=== PATIENT | female | born 1970 | race Caucasian/White ===

== ENCOUNTER 2019-03-13 00:06 | Outpatient (CLI) | payer BC, SELFPAY ==
--- NOTE | 2019-03-13 15:50 | DI.MAMMO_ITS ---
EXAM: MG MAMMO SCREENING CLINICAL HISTORY: SCREENING Z12.39. TECHNIQUE: Full field digital CC and MLO mammographic images were obtained with 3D tomosynthesis and utilizing computer aided detection (CAD). COMPARISON: 2012. FINDINGS: Breast density: Category C - Heterogeneously dense Masses/Architectural Distortion: None seen. Microcalcifications: No suspicious pleomorphic-type calcifications are seen. Skin Thickening/Nipple Retraction: None. Axilla: Unremarkable. IMPRESSION: 1. BI-RADS Cat 2 - Benign Findings. No significant interval change with no specific features of vic gnancy noted. 2. Unless there is more urgent need, screening mammography is recommended, as per [place] guidelines. Breast Density - Category C - Heterogeneously dense. The mammogram demonstrates the patient's breast tissue is dense. Dense breast tissue is very common and is not abnormal but dense breast tissue can make it harder to find cancer on a mammogram. Also, dense breast tissue may increase their breast can cer risk. This information about the result of the mammogram report was provided to the patient to ra ise their awareness. Use this report when you speak with the patient about their risks for breast can cer, which includes their family history. At that time, you may recommend for more screening tests (U ltrasound or MRI) as they might be useful based on their risk. A negative radiographic report should not delay biopsy if a dominant or clinically suspicious mass is present. Up to ten percent of cancers are not identified on mammography. A negative report may reinforce clinical impression. Adenosis and dense breasts may obscure an underlying neoplasm. False positive reports average 6 to 10%. A negative radiographic report should not delay biopsy if a dominant or clinically suspicious mass is present. Up to ten percent of cancers are not identified on mammography. A negative report may reinforce clinical impression. Adenosis and dense breasts may obscure an underlying neoplasm. False positive reports average 6 to 10%. Patient will receive a letter notifying them of these results.
== END 2019-03-13 00:26 ==
PROVIDERS: PCP Nurse Practitioner Family; Visit Provider Nurse Practitioner Family
DX: Z12.31 Encounter for screening mammogram for malignant neoplasm of breast (principal)
CPT/HCPCS: 77063; 77067

== ENCOUNTER 2019-05-12 08:15 | Day surgery (SDC) | payer BC, SELFPAY ==
[2019-05-12 08:28] VITALS: BP 101/60; PULSE 58; RESP 12; TEMP 36.5; O2SAT 100
[2019-05-12] MEDS: Lactated Ringers 1,000 ML 80 ML IV (09:40)
--- NOTE | 2019-05-12 10:13 | W.PM.DSUDISC ---
Discharge Plan Disposition Patient Disposition: HOME Condition: Good Discharge Details Reason For Visit: Colonoscopy Attending Provider: Estefania Marmolejo Primary Care Provider: Jennifer Elliott Home Meds and New Rx's Prescriptions: Discontinued polyethylene glycol 3350 17 gram/dose powder 238 g PO ONCE Qty: 238 RF: 0 bisacodyl [Dulcolax (bisacodyl)] 5 mg tablet,delayed release (DR/EC) 5 mg PO ONCE Qty: 4 RF: 0 Discharge Instructions Additional Instructions: Findings: A possible small polyp was removed. My office will contact you with biopsy results. Follow up: If an adenomatous polyp is confirmed, plan for a colonoscopy in 5 years. Please call if you develop: fevers >101.5 Nausea or Vomiting Abdominal pain that is not transient DAY SURGERY UNIT POST COLONOSCOPY INSTRUCTIONS 1. Because there will be medication in your system for the next 24 hours, you may feel a little sleepy. Your coordination will be affected. Therefore: a. Do not drive or operate dangerous equipment for 24 hours. b. Do not drink alcohol beverages for 24 hours (not even beer). c. Plan to go home and rest for the day. 2. Generally there are no restrictions on your activity after a day or so has gone by, but you may feel a bit fatigued for a few days. 3 After you arrive home you may have a light meal and return to a normal diet as you can tolerate it without feeling sick to your stomach. 4. After surgery, you may feel pain or discomfort. This should be only transient, but if it persists please contact your doctor. 5. If there are any questions regarding the findings of your procedure, please feel free to contact your doctor. 6. If you are unable to contact your doctor with a problem, contact the hospital at [phone]. 7. Continue all your regular medications unless directed otherwise. I understand the above instructions and have no questions. Signature of Patient or Responsible Adult Escort Date/Time Name of Responsible Adult Escort Signature of Nurse Date/Time Activity:: Activity as Tolerated Diet:: As Tolerated Discharge Orders Discharge Orders: Discharge Order (Routine); Ordered 05/12/19 Ordered By: Estefania Marmolejo DS: Diagnosis Discharge Diagnosis (1) Colon polyp: Status: Acute
--- NOTE | 2019-05-12 10:48 | BOWEL_PTH ---
PATIENT: Brianda Huitron LOC: [facility] U#:[id number] AGE/SX: 48/F ROOM: RE05/12/[address]: Estefania Marmolejo MD : 1970 BED: DIS: 05/12/2019 SPEC #: [id number] RECD: 05/12/19 16:18 STATUS: JOSE LUIS REQ #: [id number] EVARISTO: 05/12/19 10:[address]: Estefania Marmolejo DEPT: Surgical Specimen RECD BY: Negin Franco ENTERED: 05/12/19 16:19 SP TYPE: Bowel OTHR DR: Jennifer Elliott Tissues: 1 - BIOPSY BOWEL Procedures: GROSS AND MICRO LEVEL 4 Comments: [id number]
[2019-05-12 11:41] VITALS: BP 92/57; PULSE 50; RESP 16; TEMP 36.6; O2SAT 100
--- NOTE | 2019-05-12 15:21 | COLE_ITS ---
DATE OF PROCEDURE: May 12, 2019 PREOPERATIVE DIAGNOSIS: Screening. POSTOPERATIVE DIAGNOSIS: Possible ascending colon polyp. PROCEDURE: Colonoscopy with biopsy. SURGEON: Estefania Marmolejo M.D. ANESTHESIA: General. INDICATIONS: This is a 48-year-old woman who presents for her first screening colonoscopy. She is a symptomatic and has no family history of colon cancer. PROCEDURE: She was placed in the left Ball position. Propofol was titrated to sedation. Digital re ctal examination revealed no abnormalities. The scope was advanced to the cecum without difficulty. The ileocecal valve and appendiceal orifice were clearly identified. Her prep was good. The scope was slowly withdrawn with a thick fold versus a small, sessile polyp identified in the distal ascendi ng colon. This area was removed with the cold forceps and sent to pathology. No other abnormalities were noted throughout the transverse, descending, sigmoid colon or rectum, including on retroflex vi ew. She tolerated the procedure well and was stable to recovery. If the biopsy does confirm an adenomatous polyp, she will need a follow-up colonoscopy in five years. cc: Jennifer Elliott N.P.
== END 2019-05-12 12:08 | disposition home or self-care (01) ==
PROVIDERS: PCP Nurse Practitioner Family; Visit Provider Surgery
PROC: 0DJD8ZZ Inspection of Lower Intestinal Tract, Via Natural or Artificial Opening Endoscopic (ICD-10-PCS; CPT 45378; principal; 2019-05-12 09:45)
DX: Z12.11 Encounter for screening for malignant neoplasm of colon (principal); D12.3 Benign neoplasm of transverse colon
CPT/HCPCS: 45380; 88305

== ENCOUNTER → 2022-01-23 01:00 | Outpatient (CLI) | payer BC, SELFPAY ==
--- OUTSIDE RECORDS SUMMARY | 2022-01-23 01:01 | XMS_ITS | Encounter Summary ---
:[address] [facility] Address [address] [place] [address] Care Team Providers Name Role Phone Unknown, Provider MD Primary Care Provider Encounter Details Date Type Department Care Team Description 05/12/2019 Lab Requisition [facility] Estefania Marmolejo, Encounter for Pathology & MD screening for Laboratory Medicine [address] malignant neoplasm - [place], [place] of colon [address] [address] [place] [address] Social History Tobacco Use Types Packs/Day Years Used Date Never Assessed Sex Assigned at Date Recorded Not on file documented as of this encounter Plan of Treatment Not on filedocumented as of this encounter Procedures Procedure Name Priority Date/Time Associated Diagnosis Comme nts SURGICAL PATHOLOGY Today 05/12/2019 10:48 Encounter for Resu lts for this EST screening for procedure are in malignant neoplasm the resul ts of colon section. documented in this encounter Results SURGICAL PATHOLOGY (05/12/2019 10:48 EST) Final Diagnosis A. COLON, SPLENIC FLEXURE POLYP, POLYPECTOMY: [facility] Electronically - Low grade serrated adenoma. CENTER signed by JEAN Hunter DO on SERVICES 05/16/2019 at 09 23 Diagnosis Comment Architectural Superintendent slides of thi s case were reviewed at the intradepartmental consultation conference. [facility] SERVICES Clinical History Colon cancer screening [facility] Attestation By the signature below, [facility] Elec tronically the attending physician CENTER sign ed by Elsa, certifies that they LABORATORY Kandy Rosa DO on have 1) personally SERVICES 05/16/2019 at 0923 conducted a gross and/or microscopic examination of the described specimen(s), and/or personally interpreted the results of laboratory testing of the described specimen(s), and 2) personally rendered or confirmed the above diagnosis. Gross Description A. Received in formalin labe lled with proper patient identification (initials G, M) and possible polyp splenic flexure is a single back mucosal fragment (0.5 x 0.3 x 0.2 cm). Submitted intact in A1. [facility] Carlyn Mane 05/13/2019 06:47 LABORATORY SERVICES Scanned Images [facility] Specimen Tissue - Polyp of splenic flexure of col on (disorder) Performing Organization Address City/State/ZIP Code Phon e Number [facility] [address] [place] [address] SERVICES documented in this encounter Visit Diagnoses Diagnosis Encounter for screening for malignant ne oplasm of colon Special screening for malignant neoplasm s, colon documented in this encounter Care Teams Business Analytics Analyst Relationship Specialty Start Date End Date Unknown, Provider, PCP - General 02/15/15 documented as of this encounter
--- OUTSIDE RECORDS SUMMARY | 2022-01-23 01:01 | XMS_ITS | Encounter Summary ---
:1970 Author Organization [facility] Address [address] [place] [address] Care Team Providers Name Role Phone Unavailable Primary Care Provider Unavailable Encounter Details Date Type Department Care Team Description 08/02/2008 Orders Only [facility] Ebenezer Srivastava NP Laboratory Services - [address] [facility],[address] [address] [place] [address] [phone] Social History Tobacco Use Types Packs/Day Years Used Date Never Assessed Sex Assigned at Date Recorded Not on file documented as of this encounter Plan of Treatment Not on filedocumented as of this encounter Procedures Procedure Name Priority Date/Time Associated Comments Diagnosis HPV DETECTION, HIGH Routine 08/02/2008 8:15 Resul ts for this RISK TYPES EDT procedure are i n the results section. CYTOPATHOLOGY Routine 08/02/2008 0:00 Results for this EDT procedure are i n the results section. documented in this encounter Results HUMAN PAPILLOMA VIRUS DNA TEST (08/02/2008 8:15 EDT) Specimen Description Cervix, ThinPrep [facility] vial Result Negative for HPV [facility] types 16, 18, 31, 33, 35, 39, 45, 51, 52, 56, 58, 59, and 68. Report Status Final [facility] 08/09/2008 Specimen Performing Organization Address City/State/ZIP Code Phon e Number [facility] [address] [place] [address] SERVICES [facility] [address] [place] [address] CYTOPATHOLOGY (08/02/2008 0:00 EDT) Pathology Report: CYTOPATHOLOGY REPORT ? [facility] Reports generated via electr onic interface contain original data; ? however they are lacking the format of the original report. ? Caution should be taken when reading/interpreting unformatted reports. ? Name: ? KAREN HUITRON M ? Accession #: ? [id number] ? : ? 1970 (Age: 37) ??F ?Collect Date: ? 08/02/2008 ? Location: ? [facility] ? Receive Date: ? 08/03/2008 ? Provider: ?REINA W BESCH EDGER SAW OPERATOR ? Copy to: ? Specimen/Source: ? Pap Test, Cervix/Endocervix, ThinPrep Imaging System ? with manual evaluation ? Last Menstrual Period: ? 4/09 ? Other: ? HPVDX - HPV testing requeste d regardless of diagnosis on current ThinPrep Pap ?? test. ? SPECIMEN ADEQUACY ? Satisfactory for Eval uation ? - transformation zone compon ent present ? GENERAL CATEGORIZATION ? Negative for Intraepi thelial Lesion or Malignancy ? Document reviewed and electr onically signed by: ? Lorenzo Stumler, CT( CP) ? Report Date: ??05/04/ 2009 13:32 ? End of Report ? Specimen Performing Organization Address City/State/ZIP Code Phon e Number [facility] [address] [place] [address] SERVICES [facility] [address] [place] [address] documented in this encounter Visit Diagnoses Not on filedocumented in this encounter
--- OUTSIDE RECORDS SUMMARY | 2022-01-23 01:01 | XMS_ITS | Encounter Summary ---
:1970 Author Organization [facility] Address [address] [place] [address] Care Team Providers Name Role Phone None Primary Care Provider Unavailable Reason for Visit Reason Comments Travel Consult Encounter Details Date Type Department Care Team Description 07/20/2016 Office Visit Infectious Disease Afua Dos Santos specified counseling; [place] [facility] [place] Healthcare maintenance; [facility] Susanne gonzalez for prophylactic vaccination and inoculation against viral hepatitis; Drive Need for udliwfhwsb-xoxvjlx-zuubjlzjq (T dap) vaccine [place] [address] [place] [address] [phone] (Wo rk) Social History Tobacco Use Types Packs/Day Years Used Date Never Smoker Sex Assigned at Date Recorded Not on file documented as of this encounter Progress Notes Afua Dos Santos RN - 07/20/2016 2:00 PM EDT Adult Travel Clinic Reason for Visit: Ms. Huitron is a 45 y.o. patient who comes to travel clinic today for pre-travel evaluation, vaccination and traveler's health education. She is accompanied by her and 2 children. Trip Details: Destination countries (list from first to last): [place], [place], [place], ? [place] Departure date: 09/06/2016 Length of trip: 3 weeks Purpose of travel: pleasure, visiting family Type of environment: some urban, mostly safari in [facility] Accommodations: tented camps, hotels Medical History: Medical problems: Patient Active Problem List Diagnosis Code ??? Healthcare maintenance Z00.00 Current Outpatient Prescriptions Medication Sig Dispense Refill ??? CIS Free Text Med - Multi Vit-Fluoride ??? acetaminophen (TYLENOL) 325 mg tablet No current facility-administered medications for this visit. Immunosuppression: none History of adverse vaccine reactions: no History of latex, egg or beesting allergy:no or : no Patient advised to carry all medications in carry on luggage. Travel Health and Safety Issues: A discussion of travel health hazards and safety issues was done, including the following topics: traffic-accidents (alcohol, seatbelts), crime, alcohol related issues, sun exposure/heat illness, Schistosomiasis and other fresh water exposures, rabies, HIV infections, HepatitisTB, DVT prevention, Health Insurance coverage/[employer]. Discussed food and water precautions and patient handout provided. The following strategies were recommended for the management of traveler's diarrhea according to severity: ?? For treatment of mild diarrhea: hydration and over the counter antidiarrheal recommended. ?? For treatment of diarrhea accompanied by fever or systemic illness: hydration and empiric treatment with antibiotic recommended. We discussed carrying dose of emperic therapy of TD with fever but opted against. Hydration and Seek medical care ?? For severe or bloody diarrhea, or diarrhea accompanied by vomiting: patient advised to seek medical treatment. Vector-borne Disease Prevention Discussed insect bite prevention to reduce risk of malaria, dengue and other insect borne illnesses.Handout given. Malaria Risk: Significant risk of malaria on this itinerary. Discussed malaria chemoprophylaxis and possible side effects. Prescription for Malarone was given to the patient. Altitude: This trip does not involve high altitude. Immunizations Immunization History Administered Date(s) Administered ??? Influenza PF, Split 02/26/2016 ??? Influenza Vaccine, Whole 02/02/2005 ??? Tdap Vaccine 01/25/2007 Is very certain that she got 2 MMR. WIll look at childhood records. Today Tdap Hep A #1 Oral typhoid Hep B not highly indicated for this trip YF - not required or recommended for this itinerary Rabies - discussed animal avoidance, wound care and need for post-exposure prophylaxis. Follow-up Recommendations: Sh will need a second Hep A in 6-12 months. She'll check records at home to insure that she has had 2 doses of MMR. WIll be back in touch if shehas only one documented dose. Patient advised to call travel clinic if they return from trip with any illness. Time spent in travel counselin hour with family Vaccine information sheets given. Afua Dos Santos RN - 07/20/2016 2:00 PM EDT email from Ms. Huitron that she got nfor that she had recived a dose of MMR in 1982. INfor put into med record (04/05/82) since I don't have the exact date. documented in this encounter Plan of Treatment Not on filedocumented as of this encounter Visit Diagnoses Diagnosis Other specified counseling Healthcare maintenance Routine general medical examination at a health care facility Need for prophylactic vaccination and in oculation against viral hepatitis Need for fazlfvwntd-xhthpaz-cdxmqnwgv (T dap) vaccine Need for prophylactic vaccination with c ombined mgfllntmsk-qazlzyq-yplzaiysj (DTP) vaccine documented in this encounter Care Teams Press Room Supervisor Relationship Specialty Start Date End Date None PCP - General 02/25/10 None documented as of this encounter
--- OUTSIDE RECORDS SUMMARY | 2022-01-23 01:01 | XMS_ITS | Encounter Summary ---
:1970 Author Organization [facility] Address [address] [place] [address] Care Team Providers Name Role Phone Unavailable Primary Care Provider Unavailable Encounter Details Date Type Department Care Team Description 10/22/2006 Results Only [facility] - Sarai Trotter, DREAD conversion [address] [facility] [address] [place] [phone] (Wo rk) Social History Tobacco Use Types Packs/Day Years Used Date Never Assessed Sex Assigned at Date Recorded Not on file documented as of this encounter Plan of Treatment Not on filedocumented as of this encounter Procedures Procedure Name Priority Date/Time Associated Diagnosis Comme nts CYTOPATHOLOGY Routine 10/22/2006 0:00 EDT Results for this procedure are i n the results section . documented in this encounter Results CYTOPATHOLOGY (10/22/2006 0:00 EDT) Pathology Report: CYTOPATHOLOGY REPORT [facility] Reports generated via electronic interface contain óscar ginal data; however they are lacking the format of the original re port. Caution should be taken when reading/interpreting unfo rmatted reports. Name: ? THIAGO HUITRON ? Accession #: ? [id number] : ? 1970 (Age: 36) ??F ?Collect Date: ? 10/04 Location: ? [facility] ? Receive Date : ? 10/26/2006 Provider: ?SARAI AMAYA RUBBER GOODS INSPECTOR Copy to: ? Specimen/Source: ? ThinPrep Pap Test, Cervix/Endocervix, processed on [employer] ThinPrep Imaging System, with manual evaluation Last Menstrual Period: ? 05/10 Other: ? HPVA - HPV testing requested if ASC-US on the current ThinPrep Pap test. ? SPECIMEN ADEQUACY ? Satisfactory for Evaluation - transformation zone component present GENERAL CATEGORIZATION ? Negative for Intraepithelial Lesion or Malignan cy ? Document reviewed and electronically signed by: ? NIKOLE Hills(ASCP) ? Report Date: ??10/29/2006 15:51 End of Report Specimen Performing Organization Address City/State/ZIP Code Phon e Number [facility] [address] [place] [address] SERVICES [facility] [address] [place] [address] documented in this encounter Visit Diagnoses Not on filedocumented in this encounter
--- OUTSIDE RECORDS SUMMARY | 2022-01-23 01:01 | XMS_ITS | Encounter Summary ---
:1970 Author Organization [facility] Address [address] [place] [address] Care Team Providers Name Role Phone Unavailable Primary Care Provider Unavailable Encounter Details Date Type Department Care Team Description 04/29/2012 Results Only [facility] Ynes Pringle NP Laboratory Services - [address] [facility] [facility] [address] [place] [address] [place] [address] [phone] Social History Tobacco Use Types Packs/Day Years Used Date Never Assessed Sex Assigned at Date Recorded Not on file documented as of this encounter Plan of Treatment Not on filedocumented as of this encounter Procedures Procedure Name Priority Date/Time Associated Diagnosis Comme nts PAP TEST- RESULT Routine 04/29/2012 0:00 EST Resu lts for this ONLY procedure are i n the results section. documented in this encounter Results PAP TEST- RESULT ONLY (04/29/2012 0:00 EST) Pathology Report: CYTOPATHOLOGY REPORT [facility] Reports generated via electronic interface contain óscar ginal data; however they are lacking the format of the original re port. Caution should be taken when reading/interpreting unfo rmatted reports. Name: ? KAREN HUITRON ? Accession #: ? [id number] ? : ? 1970 (Age: 41) ??F ?Collect Da te: ? 04/29/2012 ? Location: ? [facility] ? Receive Date: ? 013 ? Provider: MARY PRINGLE SHEET METAL JOURNEYMAN Copy to: ? Final Report SPECIMEN ADEQUACY ? Satisfactory for Evaluation - transformation zone component present GENERAL CATEGORIZATION ? Negative for Intraepithelial Lesion or Malignan cy INTERPRETATION ? Reactive cellular dorothy nges associated with inflammation present (includes repair). Last Menstrual Period: 04/11/2012 Specimen/Source: ??Pap Test, Cervix/Endocervix, ThinPr ep Imaging System with manual evaluation Document reviewed and electronically signed by: ? STONEY LAND MD PHD ? Report ??Date: 05/11/2012 11:01 HPV with Pap Test ? Date Ordered: ? 05/11/2012 ? Status: ?? Signed Out ?Date Complete: ? 05/13/2012 ? By: ??S ystem Interface ? Date Reported: ? 05/13/2012 ? Interpretation RESULT: Negative for HPV. No E6 or E7 mRNA is detected from HPV types 16,18,31,3 3,35, 39,45,51,52,56,58,59,66, and 68 by sour bleaching pleater media val amplification. Comments Document reviewed and electronically signed by: ? System Interface ? Report date: 05/13/2012 By the signature above, the attending physician certif ies that he/she has personally conducted a gross and/or microscopic examin ation of the described specimens and rendered or confirmed the above diagnosi s. End of Report Specimen Performing Organization Address City/State/ZIP Code Phon e Number [facility] [address] [place] [address] SERVICES [facility] [address] [place] [address] documented in this encounter Visit Diagnoses Not on filedocumented in this encounter
--- OUTSIDE RECORDS SUMMARY | 2022-01-23 01:01 | XMS_ITS | Clinical Summary ---
:1970 Author Organization [facility] [place] [address] Care Team Providers Name Role Phone None Primary Care Provider Unavailable Allergies No known active allergies Medications Medication Sig Dispensed Refills Start Date End Date Status CIS Free Text Med - 0 04/10/2005 Active Multi Vit-Fluoride acetaminophen (TYLENOL) 0 04/10/2005 Active 325 mg tablet atovaquone-proguanil Take 1 tablet by 18 tablet 0 07/20/2016 Active (MALARONE) 250-100 mg mouth daily. TabletIndications: Other Start day before specified counseling travel to risk area, daily while there & for 7 days after Active Problems Problem Noted Date Healthcare maintenance 07/20/2016 Immunizations Name Administration Dates Next Due Hepatitis A Vaccine, Adult 07/20/2016 Influenza PF, Split 02/26/2016 Influenza Vaccine, Whole 02/02/2005 MMR Vaccine, Live 04/05/1982 Tdap Vaccine 07/20/2016, 01/25/2007 Typhoid Live, Oral 07/20/2016 Social History Tobacco Use Types Packs/Day Years Used Date Never Smoker Sex Assigned at Date Recorded Not on file Plan of Treatment Health Maintenance Due Date Last Done Comments Covid-19 Vaccine (#1) 03[birth year]06/1971 HIV screen 1986 Hepatitis C Screening 1986 HPV test 1998 PAP Smear 1998 Breast Cancer Share Decision Needed 2008 Colonoscopy 2013 Breast Cancer screening 2018 Zoster vaccine (1 of 2) 2018 Influenza (Flu) vaccine (1 of 1 - 12/04/2021 02/26/2016, Influenza standard series) Tetanus vaccine 07/20/2026 07/20/2016, 01/25/2007 Tdap adult Completed 07/20/2016, 01/25/2007 Care Teams Cloth Coverer Relationship Specialty Start Date End Date None PCP - General 02/25/10 None
--- OUTSIDE RECORDS SUMMARY | 2022-01-23 01:01 | XMS_ITS | Clinical Summary ---
:1970 Author Organization [facility] Address [address] [place] [address] Care Team Providers Name Role Phone Unknown, Provider Primary Care Provider Social History Tobacco Use Types Packs/Day Years Used Date Never Assessed Sex Assigned at Date Recorded Not on file Plan of Treatment Not on file Insurance Payer Benefit Plan / Subscriber ID Effective Dates Phone Addre ss Type Group [facility] [id number] 2019-Present [address] [facility] [place] [place] [address] Care Teams Pipe Stress Engineer Relationship Specialty Start Date End Date Unknown, Provider, PCP - General 02/15/15
--- OUTSIDE RECORDS SUMMARY | 2022-01-23 01:01 | XMS_ITS | Encounter Summary ---
:1970 Author Organization [facility] Address [address] [place] [address] Care Team Providers Name Role Phone Unknown, Provider Primary Care Provider Encounter Details Date Type Department Care Team Description 10/15/2017 Results Only [facility]- Erin Damon, PULPER [phone] [address] [place] [address] (Wo rk) Social History Tobacco Use Types Packs/Day Years Used Date Never Assessed Sex Assigned at Date Recorded Not on file documented as of this encounter Plan of Treatment Not on filedocumented as of this encounter Procedures Procedure Name Priority Date/Time Associated Diagnosis Comme nts PAP TEST- RESULT Routine 10/15/2017 0:00 EDT Resu lts for this ONLY procedure are i n the results section. documented in this encounter Results PAP TEST- RESULT ONLY (10/15/2017 0:00 EDT) Pathology Report: CYTOPATHOLOGY REPORT [facility] Reports generated via electronic interface contain óscar ginal data; SERVICES however they are lacking the format of the original re port. Caution should be taken when reading/interpreting unfo rmatted reports. Name: ? KAREN HUITRON ? Accession #: ? [id number] ? : ? 1970 (Age: 47 ) ??F ?Collect Date: ? 10/15/2017 ? Location: ? [facility] ? Receive Date: ? 10/19/19 18 ? Provider: ERIN SIMEON PULPER Copy to: ? Final Report SPECIMEN ADEQUACY ? Satisfactory for Evaluation - transformation zone component present GENERAL CATEGORIZATION ? Negative for Intraepithelial Lesion or Malignan cy INTERPRETATION ? Reactive cellular dorothy nges associated with inflammation present (includes repair). Specimen/Source: ??Pap Test, Cervix, ThinPrep Imaging System with manual evaluation Document reviewed and electronically signed by: ? MATTHEW GRAMAJO MD ? Report ??Date: 10/28/2017 10:23 HPV with Pap Test ? Date Ordered: ? 10/27/2017 ? Status: ?? Signed Out ?Date Complete: ? 10/29/2017 ? By: ??Sy stem Interface ? Date Reported: ? 10/29/2017 ? Interpretation RESULT: Negative for HPV. No E6 or E7 mRNA is detected from HPV types 16,18,31,3 3,35, 39,45,51,52,56,58,59,66, and 68 by slitter scorer cut off operator media val amplification. Comments Document reviewed and electronically signed by: ? System Interface ? Report date: 10/29/2017 By the signature above, the attending physician certif ies that he/she has personally conducted a gross and/or microscopic examin ation of the described specimens and rendered or confirmed the above diagnosi s. End of Report Specimen Performing Organization Address City/State/ZIP Code Phon e Number [facility] [address] [place] [address] SERVICES documented in this encounter Visit Diagnoses Not on filedocumented in this encounter Care Teams Nickel Plater Relationship Specialty Start Date End Date Unknown, Provider, PCP - General 02/15/15 documented as of this encounter
--- NOTE | 2022-01-23 12:00 | DI.MAMMO_ITS ---
Exam(s) MAMMO SCREENING EXAM: MAMMO SCREENING CLINICAL HISTORY: SCREENING, Z12.39. TECHNIQUE: Bilateral full field digital CC and MLO mammographic images were obtained with 3D tomosyn thesis and utilizing computer aided detection (CAD). COMPARISON: Prior mammograms were reviewed, the most recent being March 2019. FINDINGS: There has been no significant change in the appearance and distribution of the fibroglandular tissue. There are no new spiculated masses nor malignant appearing microcalcification groups. Benign microcalcifications again noted right breast. There is no significant architectural distortion nor skin thickening-retraction. IMPRESSION: No radiographic evidence of malignancy. BI-RADS Category 2 - Benign Findings Breast Density - Category C - Heterogeneously dense Breast density Category C or D implies that the patient has dense breast tissue. Dense breast tissue can make it harder to find cancer on a mammogram. Dense breast tissue is also associated with an incr eased risk of breast cancer. This information about the result of the mammogram report was provided to the patient to raise their awareness. Use this report when you speak with the patient about their risks for breast cancer, which includes their family history. At that time, you may recommend additional screening tests (Ultrasoun d or MRI) as these tests may add significant information. A negative radiographic report should not delay biopsy if a dominant or clinically suspicious mass is present. Up to ten percent of cancers are not identified on mammography. A negative report may reinforce clinical impression. Adenosis and dense breasts may obscure an underlying neoplasm. False positive reports average 6 to 10%. Patient will receive a letter notifying them of these results.
== END ==
PROVIDERS: PCP Nurse Practitioner Family; Visit Provider Nurse Practitioner Family
DX: Z12.31 Encounter for screening mammogram for malignant neoplasm of breast (principal); R92.8 Other abnormal and inconclusive findings on diagnostic imaging of breast
CPT/HCPCS: 77063; 77067

== ENCOUNTER 2022-11-30 18:12 | Outpatient (REF) | payer BC, SELFPAY | END 2022-11-30 18:13 | disposition home or self-care (01) | LOC: LBN 18:12 | PROVIDERS: PCP Nurse Practitioner Family; Visit Provider Nurse Practitioner Family | DX: L02.01 Cutaneous abscess of face (principal) | CPT/HCPCS: 87077; 87070; 87186; 87205 ==

== ENCOUNTER 2023-05-21 15:08 | Outpatient (REF) | payer BC, SELFPAY ==
--- NOTE | 2023-05-21 14:00 | PAPFT_PTH ---
PATIENT: Brianda Huitron LOC: [facility]#:[id number] AGE/SX: 52/F ROOM: RE05/21/[address]: LALY ANTONIO : 1970 BED: DIS: 05/21/2023 SPEC #: [id number] RECD: 05/24/23 13:07 STATUS: JOSE LUIS REQ #: [id number] EVARISTO: 05/21/23 14:[address]: Laly Antonio DEPT: [facility] Cytology RECD BY: Negin Franco ENTERED: 05/24/23 13:07 SP TYPE: PAPFT OTHR DR: eJnnifer Elliott Tissues: 1 - CX/ENDOCX FOR PAP SMEARS Procedures: PAP THIN PREP/UVM Screening HPV DNA PROBE Comments: [id number]
[2023-05-21 19:50] LABS: Abs Immature Grans 0.01 10^3/uL (0.0-0.06); Absolute Basophil Count 0.06 10^3/uL (0.0-0.2); Absolute Eosinophil Count 0.24 10^3/uL (0.0-0.7); Absolute Lymphocyte Count 1.78 10^3/uL (1.2-3.4); Absolute Monocyte Count 0.46 10^3/uL (0.1-0.8); Absolute Neutrophil Count 4.11 10^3/uL (1.2-6.7); Basophils % 0.9; Eosinophils % 3.6; HGB 12.8 g/dL (11.2-15.7); Immature Grans % 0.2; Lymphocytes % 26.7; MCH 29.8 pg (27.0-33.0); MCHC 33.7 % (32.0-36.0); MCV 88 fL (80-95); MPV 10.5 fL (8.0-11.0); Monocytes % 6.9; Neutrophils % 61.7; Platelet Count 305 10^3/uL (130-400); RDW 12.5 % (11.7-14.6); RDW-SD 40.3 fL; WBC 6.66 10^3/uL (4.4-10.8)
[2023-05-21 20:01] LABS: ALT 26 U/L (14-59); AST 16 U/L (15-37); Albumin 4.1 g/dL (3.4-5.0); Alkaline Phosphatase 66 U/L (46-116); Anion Gap 9.2 mmol/L (3-11); BUN 17 mg/dL (7-18); Bilirubin, Total 0.3 mg/dL (0.2-1.0); CO2 27.8 mmol/L (21.0-32.0); CREATININE 0.8 mg/dL (0.55-1.02); Calcium 9.4 mg/dL (8.5-10.1); Calculated LDL 89 mg/dL (<100); Chloride 105 mmol/L (98-107); Cholesterol 209 mg/dL (<200); Glucose 105 mg/dL (74-106); HDL Cholesterol 92 mg/dL (40-60); Potassium 3.9 mmol/L (3.5-5.1); Sodium 142 mmol/L (136-145); Total Protein 7.1 g/dL (6.4-8.2); Triglyceride 144 mg/dL (<150)
== END 2023-05-21 15:09 | disposition home or self-care (01) ==
LOC: NCHCN 15:08
PROVIDERS: PCP Nurse Practitioner Family; Referring Provider Nurse Practitioner Family; Visit Provider Nurse Practitioner Family
DX: Z13.6 Encounter for screening for cardiovascular disorders (principal); Z13.0 Encounter for screening for diseases of the blood and blood-forming organs and certain disorders involving the immune mechanism
CPT/HCPCS: 80053; 80061; 88142; 85025; 87624

== ENCOUNTER 2024-01-07 00:23 | Outpatient (CLI) | payer BC, SELFPAY ==
--- NOTE | 2024-01-07 | DI.MAMMO_ITS ---
Exam(s) MAMMO SCREENING EXAM: MAMMO SCREENING CLINICAL HISTORY: SCREENING, Z12.31 TECHNIQUE: Mammograms were interpreted according to the usual protocol including computer analysis w [employer] CAD system, tomosynthesis and C-view imaging. COMPARISON: 2018 and 2021 FINDINGS: The breasts are composed of heterogeneously dense fibroglandular densities, Breast Density category C . No suspicious masses or suspicious microcalcifications are seen. No skin thickening or abnormal axillary lymph nodes are seen. There has been no significant change from prior exams. IMPRESSION: BI-RADS Category 1, Negative mammogram. Yearly screening mammography is recommended. Breast Density Category C, heterogeneously Dense. The mammogram demonstrates the patient's breast tissue is dense. Dense breast tissue is very common a nd is not abnormal but dense breast tissue can make it harder to find cancer on a mammogram. Also, de nse breast tissue may increase breast cancer risk. This information about the result of the mammogram report was provided to the patient to raise their awareness. Use this report when you speak with the patient about their risks for breast cancer, which includes their family history. At that time, you may recommend additional screening tests (Ultrasound or MRI) as they might be useful based on their r isk. A negative radiographic report should not delay biopsy if a dominant or clinically suspicious mass is present. Up to ten percent of cancers are not identified on mammography. A negative report may reinforce clinical impression. Adenosis and dense breasts may obscure an underlying neoplasm. False positive reports average 6 to 10%.
== END 2024-01-07 00:43 ==
PROVIDERS: Visit Provider Nurse Practitioner Family
DX: Z12.31 Encounter for screening mammogram for malignant neoplasm of breast (principal)
CPT/HCPCS: 77063; 77067

== ENCOUNTER 2024-11-21 20:59 | Inpatient (IN) | payer BC, SELFPAY ==
[2024-11-21 21:00] VITALS: BP 117/77; PULSE 72; RESP 20; TEMP 36.1; O2SAT 98
[2024-11-21 21:10] VITALS: BP 117/77; PULSE 72; RESP 20; TEMP 36.1; O2SAT 98
--- NOTE | 2024-11-21 21:30 | DI.RAD_ITS ---
Exam(s) XR KNEE LT 3V AP,LAT,SUSAN EXAM: XR KNEE LT 3V AP,LAT,SUSAN CLINICAL HISTORY: Old injury, pain, swelling,. TECHNIQUE: 2D digital imaging was performed. Three views. COMPARISON: No exams were available for comparison FINDINGS: BONES: No acute fracture is present. No bony destructive lesion is seen. JOINTS: The knee is normally aligned. No joint effusion is seen. The joint spaces are maintained. SOFT TISSUE: Marked soft tissue swelling anteriorly which could represent prepatellar bursitis post versus posttraumatic. IMPRESSION: Marked anterior soft tissue swelling.. The preliminary [facility] report was reviewed. DATA REPOSITORY: RADIATION DOSE DELIVERED:
--- NOTE | 2024-11-21 21:40 | ED.GENADUL_ITS ---
Discharge Plan Disposition Patient Disposition: Admit to [facility] Condition: Stable Discharge Details Clinical Impression: Cellulitis, Septic prepatellar bursitis of left knee Primary Care Provider: Unknown,Unknown ED Provider: Park Owen Home Meds and New Rx's Prescriptions: No Action No Known Home Meds [facility] General Mode of arrival: ambulatory . Date/Time Provider Initiated Documentation: 11/21/24 21:00 . Limitations to Documentation: no limitations . Information obtained by: patient, RN notes reviewed and old records reviewed . HPI Narrative: 54-year-old female presents to the ER with a chief complaint of fever chills body myalgias and left knee pain with erythema which she noticed today after hiking. Patient reports that she fell on October 03 while running landing on to her left knee. She did have significant bruising at that time and was never seen. She reports that it was feeling better and however started bothering her while running today. She began with myalgias body aches and fever of 101.4 at home prior to arrival. She did take ibuprofen around 7 PM. She is able to extend her left leg fully but has decreased range of motion to approximately 35 degrees with flexion. There is marked erythema noted anteriorly and swelling. She reports that she did take a home COVID test which was negative. Denies any other associated symptoms. No significant past medical history allergies or major surgeries. Related Data Home Medications ?Medication ?Instructions ?Recorded ?Confirmed Unknown [No Known Home Meds] 11/21/24 0 11/21/24 Allergies Allergy/AdvReac Type Severity Reaction Status Date / Time No Known Allergies Allergy Verified 11/21/24 21:05 General Stated Complaint: Cellulitis TEQUILA: 3 Review of Systems All systems reviewed & are unremarkable except as noted in HPI and below Constitutional Constitutional: Reports as per HPI, Reports body ache(s) and Reports fever(s) Musculoskeletal Musculoskeletal: Reports as per HPI, Reports myalgias, Reports arthralgias, Reports joint swelling (Left knee) and Reports limited range of motion Integumentary/Breasts Skin/Breast: Reports erythema (Marked redness over her left anterior knee measuring 15 cm x 15 cm) Exam Narrative Exam Narrative: Constitutional: Alert and oriented x3. Appears stated age. Normal body habitus. Head: Normocephalic, no trauma. Eyes: Pupils PERRL, Red reflex noted, EOM's intact. Eyelids symmetrical without lesions, discharge, or swelling. ENT: Bilateral TM's WNL, External ear normal to inspection, no mastoid TTP, swelling, or erythema, Nasal turbinates WNL, no nasal discharge. Normal dentition, Posterior pharynx WNL, no exudate. Chest: RRR, Normal S1, S2, distal pulses intact. Resp: Lungs clear to auscultation bilaterally, no wheezes, rales, or rhonchi. Abdomen: Soft, non-distended, Normoactive bowel sounds all 4 quads. Musculoskeletal: See skin and extremity assessment below. Pain with flexion to approximately 35 degrees is able to extend without difficulty. Neurologic: Cranial nerves II-XII intact. Alert and oriented x 3. Motor: No deficits noted. Sensory: Intact bilaterally all 4 extremities. Hematologic/Lymphatic: No ecchymosis, no lymphadenopathy. Skin General skin exam: elasticity normal and turgor normal Full body images: 2 1. Marked erythema, swelling, warmth tenderness Extrem Left lower extremity: knee Details: tenderness, swelling, abnormal ROM Details: pain with active ROM Details: with flexion and warmth Location: anteriorly Knee images: 2 1. Marked erythema approximately 15 cm x 15 cm, Marked with surgical marker Course Vital Signs Vital signs: Vital Signs Temperature 36.1 C L 11/21/24 21:00 Pulse 72 11/21/24 21:00 Respiratory Rate 20 11/21/24 21:00 Blood Pressure 117/77 11/21/24 21:00 Pulse Oximetry 98 11/21/24 21:00 Temperature 36.1 C L 11/21/24 21:10 Pulse 72 11/21/24 21:10 Respiratory Rate 20 11/21/24 21:10 Blood Pressure 117/77 11/21/24 21:10 Blood Pressure Position Sitting 11/21/24 21:10 Pulse Oximetry 98 11/21/24 21:10 Oxygen Delivery Method Room Air 11/21/24 21:10 Pain Level 1 11/21/24 21:10 Comment 101.4 at 1800 took Advil aprrox 1900 11/21/24 21:10 Medical Decision Making 54-year-old female presents to the ER with a chief complaint of fever chills body myalgias and left knee pain with erythema which she noticed today after hiking. Patient reports that she fell on October 03 while running landing on to her left knee. She did have significant bruising at that time and was never seen. She reports that it was feeling better and however started bothering her while running today. She began with myalgias body aches and fever of 101.4 at home prior to arrival. She did take ibuprofen around 7 PM. She is able to extend her left leg fully but has decreased range of motion to approximately 35 degrees with flexion. There is marked erythema noted anteriorly and swelling. She reports that she did take a home COVID test which was negative. Denies any other associated symptoms. No significant past medical history allergies or major surgeries. Workup ordered including CBC CMP tick and Lyme panel knee x-ray, CRP, ESR and will consent for left knee joint aspiration pending XRay. 2254: Discussed plan of care and recommendation for admission with patient who verbalized understanding. I also did verbally consent her for a left knee joint aspiration which she is agreeable to at this time. Preliminary x-ray as noted below which shows no osseous abnormalities. 2. Severe prepatellar soft tissue swelling consider cellulitis versus prepatellar bursitis. No soft tissue air or foreign body. Hospitalist paged. 2305: Patient prepped and verbally consented for the aspiration however before I was able to inject her knee with lidocaine or aspirate fluid patient was texting her sister who is an orthopedic surgeon [facility] and would like to hold off on the joint aspiration at this time. Procedure stopped at patient request. 2311: Spoke with Dr. St who is on-call for hospitalist regarding patient case in details he agrees to accept patient for admission for observation of possible cellulitis versus septic joint versus septic bursitis. Vancomycin IV piggyback ordered 1 g, and ceftriaxone 1 g IV ordered to cover for possible Septic joint. Patient aware of POC and is in agreement with the plan. This text was generated using [employer] dictation system, please disregard any oddities of phrase or misspellings. Imaging Data Radiologic Study: Imaging: X-Ray Radiologist's impression: TECHNIQUE: Imaging protocol: Radiologic exam of the left knee. Views: 3 views. COMPARISON: No relevant prior studies available. FINDINGS: Bones/joints: No fracture or malalignment. No gross joint effusion. No evidence of osteomyelitis or septic joint. Soft tissues: Severe anterior soft tissue swelling, edema versus cellulitis or possibly prepatellar bursitis. No soft tissue air or foreign body. Vasculature: Varicose veins in the distal thigh and calf in the greater saphenous distribution. IMPRESSION: 1. No osseous abnormalities. 2. Severe prepatellar soft tissue swelling. Consider cellulitis versus edema or possibly prepatellar bursitis. No soft tissue air or foreign body. 3. Varicose veins. Thank you for allowing us to participate in the care of your patient. Dictated and Authenticated by: Med Hampton MD Lab Data Lab results reviewed: Yes I reviewed the patient's lab results. Labs: 11/21/24 22:03 Synovial - Left Knee Body Fluid Culture - Pending 11/21/24 22:03 Synovial - Left Knee Gram Stain - Pending 11/21/24 21:52 Blood Blood Culture - Pending 11/21/24 21:43 Blood Blood Culture - Pending Laboratory Tests Range/Units 11/21/24 11/21/24 21:45 21:45 WBC (4.4-10.8) 10^3/uL 13.60 H RBC (3.93-5.22) 10^6/uL 4.10 Hgb (11.2-15.7) g/dL 12.0 Hct (36.0-46.0) % 35.8 L MCV (80-95) fL 87 MCH (27.0-33.0) pg 29.3 MCHC (32.0-36.0) % 33.5 RDW (11.7-14.6) % 12.7 Plt Count (130-400) 10^3/uL 246 MPV (8.0-11.0) fL 9.6 Immature Gran % % 0.3 Neutrophils % % 76.6 Lymphocytes % % 11.5 Monocytes % % 10.8 Eosinophils % % 0.4 Basophils % % 0.4 Nucleated RBC % (0.0-0.3) % 0.0 Absolute Neutrophils (1.2-6.7) 10^3/uL 10.42 H Absolute Lymphocytes (1.2-3.4) 10^3/uL 1.56 Absolute Monocytes (0.1-0.8) 10^3/uL 1.47 H Absolute Eosinophils (0.0-0.7) 10^3/uL 0.05 Absolute Basophils (0.0-0.2) 10^3/uL 0.05 ESR (0-30) mm/hr 19 Sodium (136-145) mmol/L 138 Potassium (3.5-5.1) mmol/L 3.7 Chloride (98-107) mmol/L 102 Carbon Dioxide (21.0-32.0) mmol/L 26.4 Anion Gap (3-11) mmol/L 9.6 BUN (7-18) mg/dL 11 Creatinine (0.55-1.02) mg/dL 0.9 Est GFR (CKD-EPI 2020) (mL/min/1.73m2) 75.03 Glucose (74-106) mg/dL 112 H Calcium (8.5-10.1) mg/dL 9.0 Magnesium (1.8-2.4) mg/dL 2.3 Total Bilirubin (0.2-1.0) mg/dL 0.7 AST (15-37) U/L 17 ALT (14-59) U/L 24 Alkaline Phosphatase (46-116) U/L 54 C-Reactive Protein (<or=0.5) mg/dL 7.32 H Total Protein (6.4-8.2) g/dL 7.1 Albumin (3.4-5.0) g/dL 3.8 Procalcitonin ng/mL 0.32 Add-On Test Request DONE DONE [facility]LY [facility] All Active Problems (Updated 11/21/24 @ 22:56 by Park Owen NP) Septic prepatellar bursitis of left knee (Acute) Cellulitis (Acute) Colon polyp (Acute) Surgical History H/O colonoscopy (~05/2019) 05/2019 - low grade serrated adenoma. Repeat in 5 years. Social History Smoking/Tobacco Use Status: Never Smoking risk assessment performed?: Yes Alcohol Intake: current Alcohol Intake frequency: a few times a week Alcohol type: wine Drug use: Never Substance use type: does not use Housing: house Do you feel safe at home: Yes Do you feel safe in your relationship?: Yes
[2024-11-21 21:56] LABS: Abs Immature Grans 0.04 10^3/uL (0.0-0.06); HCT 35.8 % (36.0-46.0); HGB 12.0 g/dL (11.2-15.7); Immature Grans % 0.3 %; MCH 29.3 pg (27.0-33.0); MCHC 33.5 % (32.0-36.0); MCV 87 fL (80-95); MPV 9.6 fL (8.0-11.0); Platelet Count 246 10^3/uL (130-400); RBC 4.10 10^6/uL (3.93-5.22); RDW 12.7 % (11.7-14.6); RDW-SD 40.8 fL; WBC 13.60 10^3/uL (4.4-10.8)
[2024-11-21 22:15] LABS: Lab Add On Test DONE
[2024-11-21 22:16] LABS: ALT 24 U/L (14-59); AST 17 U/L (15-37); Albumin 3.8 g/dL (3.4-5.0); Alkaline Phosphatase 54 U/L (46-116); Anion Gap 9.6 mmol/L (3-11); BUN 11 mg/dL (7-18); Bilirubin, Total 0.7 mg/dL (0.2-1.0); CO2 26.4 mmol/L (21.0-32.0); Calcium 9.0 mg/dL (8.5-10.1); Chloride 102 mmol/L (98-107); Estimated GFR 75.03 (mL/min/1.73m2); Glucose 112 mg/dL (74-106); Magnesium 2.3 mg/dL (1.8-2.4); Potassium 3.7 mmol/L (3.5-5.1); Sodium 138 mmol/L (136-145); Total Protein 7.1 g/dL (6.4-8.2)
[2024-11-21 22:18] LABS: ESR 19 mm/hr (0-30)
[2024-11-21 22:20] LABS: Lab Add On Test DONE
[2024-11-21 22:29] LABS: C-Reactive Protein 7.32 mg/dL (<or=0.5)
--- NOTE | 2024-11-21 22:33 | DI.[facility]_ITS ---
PROCEDURE INFORMATION: Exam: XR Left Knee Exam date and time: 11/21/2024 10:07 PM Age: 54 years old Clinical indication: Pain; Knee; Left; Additional info: Old injury, pain, swelling, TECHNIQUE: Imaging protocol: Radiologic exam of the left knee. Views: 3 views. COMPARISON: No relevant prior studies available. FINDINGS: Bones/joints: No fracture or malalignment. No gross joint effusion. No evidence of osteomyelitis or septic joint. Soft tissues: Severe anterior soft tissue swelling, edema versus cellulitis or possibly prepatellar bursitis. No soft tissue air or foreign body. Vasculature: Varicose veins in the distal thigh and calf in the greater saphenous distribution. IMPRESSION: 1. No osseous abnormalities. 2. Severe prepatellar soft tissue swelling. Consider cellulitis versus edema or possibly prepatellar bursitis. No soft tissue air or foreign body. 3. Varicose veins. Dictated and Authenticated by: Med Hampton MD. Orderin Lexie Nick MD
[2024-11-21 22:56] LABS: Procalcitonin 0.32 ng/mL
[2024-11-21] MEDS: Lidocaine 1% Pres-Free W/EPI 1/200,000 30 ML VIAL IJ (23:00)
[2024-11-21] MEDS: cefTRIAXone 1 GM/50 ML BAG IVPB (23:25)
--- NOTE | 2024-11-21 23:37 | W.PM.HP.N ---
Date of service: 11/21/24 Time of Service: 23:58 Assessment and Plan Assessment and plan (1) Septic prepatellar bursitis of left knee: Start date: 11/21/24 Status: Acute Assessment and plan: This is a 54-year-old lady who had a fall in early October with injury to her left knee which appear to be a hematoma by the picture she took of her knee at that time. This slowly resolved but she recently began to attempt to exercise again and went on a long hike prior to this presentation. After this hike, patient had significant increase in swelling after patella area and appeared to have cellulitis. She also had fever and chills and this may be septic. She was treated with IV Rocephin and vancomycin with orthopedic consultation for possible drainage of her patella bursa which may be an infected hematoma. She is a full code. (2) Cellulitis: Start date: 11/21/24 Status: Acute Assessment and plan: This is a complication of a hematoma with patient attempting to reach engage in activities that are quite strenuous. It appears focal over her patella area and not to involve the joint at this time. Vancomycin and Rocephin with orthopedic consultation to evaluate prepatellar bursa which may be septic. Her CRP was elevated but procalcitonin was negative and she did have fever which resolved. Blood cultures were performed. There was no fluid obtained from the patella bursa for culture or Gram stain and this may be performed by the orthopedist. History of Present Illness History of Present Illness Chief Complaint: Acute swelling left knee after injury and partial recovery, fever Narrative: This is a 54-year-old female patient who is very healthy on no medical therapy who frequently runs and hikes locally. She injured herself October 03, 2024 while running and she fell hitting her left knee very hard to the ground causing a slight scrape but mostly a large bruised and swollen knee. She had problems walking for a while but this slowly improved to where she began to exercise once again. Over the last week or so the patient states that her knee felt close to normal but not completely to baseline. She hiked 18 miles in the [facility] the day prior to presentation and presented to the ED because of swelling and pain in her left knee along with redness. She also had fever with chills. She complained of muscle aches and bodyaches with her fever. She denied any cough or respiratory symptoms. She had no symptoms. She reports the ED because of her fever and swollen knee and was concerned about infection. Her sister is an orthopedist advised that she be seen by an orthopedist locally. The patient was not seen for her initial injury. Imaging in ED did not show any acute fractures and no significant joint effusion but significant soft tissue and prepatellar edema consistent with patellar bursitis which appears septic with fever. She also had a slightly elevated white count. CRP was also elevated. Procalcitonin was negative and she did not appear septic. Patient will be admitted for IV antibiotic therapy and orthopedic consultation in the morning. She is a full code. Review of Systems Narrative: 13 point review of systems otherwise unrevealing or stable. PFSH All Active Problems (Updated 11/22/24 @ 06:51 by Emory Nettles) Septic prepatellar bursitis of left knee (Acute) Cellulitis (Acute) Colon polyp (Acute) Surgical History H/O colonoscopy (~05/2019) 05/2019 - low grade serrated adenoma. Repeat in 5 years. Social History Smoking/Tobacco Use Status: Never Smoking risk assessment performed?: Yes Alcohol Intake: current Alcohol Intake frequency: a few times a week Alcohol type: wine Drug use: Never Substance use type: does not use Housing: house Do you feel safe at home: Yes Do you feel safe in your relationship?: Yes Meds Allergies and Home Medications Allergies Allergy/AdvReac Type Severity Reaction Status Date / Time No Known Allergies Allergy Verified 11/21/24 21:05 Home Medications ?Medication ?Instructions ?Recorded ?Confirmed ?Type Unknown [No Known Home Meds] 11/21/24 11/21/24 History Exam Narrative Exam Narrative: General: Patient appears appropriate for age, moderately obese, alert and oriented x 3 and in no acute distress. She is well tanned. HEENT: Normocephalic, eyes with pupils equal and reactive light symmetrically, extraocular movement intact and sclera anicteric. Oropharynx with moist mucosa and good dentition. Neck: Supple without JVD. Back: Normal posture without CVA tenderness. Lungs: Clear to auscultation and percussion with no focalizing rales or rhonchi. No expiratory wheeze. Heart: Regular rate and rhythm with no murmurs or gallop appreciated. Breast: Exam deferred. Abdomen: Obese contour, soft and nontender to palpation no palpable hepatosplenomegaly. Genitalia/rectal: Exam deferred. Extremities: Left knee has moderate swelling especially over the anterior knee which covers the entire knee and lower thigh as well as upper leg anteriorly with erythema, increased warmth to touch and fluctuance over the patella bursa with no palpable knee effusion. She has increased discomfort with flexion. Right knee is normal. There is no other edema. Peripheral pulses are intact. No clubbing or cyanosis. Skin: Darkly tanned, warm and dry. Neuro: Cranial nerves II through XII intact, no focalized motor deficits and no tremor. Psych: Normal affect and mood. No abnormal thought processes. Remote and recent memory intact. Results Imaging Imaging Studies: Exam: XR Left Knee Exam date and time: 11/21/2024 10:07 PM Age: 54 years old Clinical indication: Pain; Knee; Left; Additional info: Old injury, pain, swelling, TECHNIQUE: Imaging protocol: Radiologic exam of the left knee. Views: 3 views. COMPARISON: No relevant prior studies available. FINDINGS: Bones/joints: No fracture or malalignment. No gross joint effusion. No evidence of osteomyelitis or septic joint. Soft tissues: Severe anterior soft tissue swelling, edema versus cellulitis or possibly prepatellar bursitis. No soft tissue air or foreign body. Vasculature: Varicose veins in the distal thigh and calf in the greater saphenous distribution. IMPRESSION: 1. No osseous abnormalities. 2. Severe prepatellar soft tissue swelling. Consider cellulitis versus edema or possibly prepatellar bursitis. No soft tissue air or foreign body. 3. Varicose veins. Labs 11/21/24 21:45 11/21/24 21:45 Labs: Laboratory Results - last 24 hr 11/21/24 11/21/24 21:45 21:45 WBC 13.60 H RBC 4.10 Hgb 12.0 Hct 35.8 L MCV 87 MCH 29.3 MCHC 33.5 RDW 12.7 Plt Count 246 MPV 9.6 Immature Gran % 0.3 Neutrophils % 76.6 Lymphocytes % 11.5 Monocytes % 10.8 Eosinophils % 0.4 Basophils % 0.4 Nucleated RBC % 0.0 Absolute Neutrophils 10.42 H Absolute Lymphocytes 1.56 Absolute Monocytes 1.47 H Absolute Eosinophils 0.05 Absolute Basophils 0.05 ESR 19 Sodium 138 Potassium 3.7 Chloride 102 Carbon Dioxide 26.4 Anion Gap 9.6 BUN 11 Creatinine 0.9 Est GFR (CKD-EPI 2020) 75.03 Glucose 112 H Calcium 9.0 Magnesium 2.3 Total Bilirubin 0.7 AST 17 ALT 24 Alkaline Phosphatase 54 C-Reactive Protein 7.32 H Total Protein 7.1 Albumin 3.8 Procalcitonin 0.32 Add-On Test Request DONE DONE Last Vital Signs Temp 36.1 C L 11/21/24 21:10 Pulse 72 11/21/24 21:10 Resp 20 11/21/24 21:10 BP 117/77 11/21/24 21:10 Pulse Ox 98 11/21/24 21:10 Time Spent Time spent with Patient: 55-74 minutes Time was spent: preparing to see the patient(eg.review tests), obtaining and/or reviewing separately otained hiistory, ordering medications,tests, procedures, indepentently interpreting results, counseling the patient and care coordination
[2024-11-22] MEDS: VANCOMYCIN 1,000 MG in Normal Saline 250 ML 166.6666 MG IVPB (00:03)
[2024-11-22] MEDS: Water,Injection,Sterile 10 ML VIAL (00:05)
[2024-11-22 00:56] VITALS: BP 94/61; PULSE 68; RESP 16; TEMP 36.2; O2SAT 100
[2024-11-22 01:13] VITALS: BP 105/65; PULSE 71; RESP 18; TEMP 36.3; O2SAT 100
[2024-11-22 01:14] LABS: COVID-19 PCR Negative (Negative); RSV PCR Negative (Negative)
[2024-11-22 01:19] VITALS: BP 105/65; PULSE 71; RESP 18; TEMP 36.3; O2SAT 100
--- NOTE | 2024-11-22 01:56 | W.PC.ACHO ---
Registration Status: ADM IN Primary Language: Preferred Language: ED Information & Data Chief Complaint Cellulitis 11/21/24 21:42 Other Complaint Orthopedic 11/21/24 21:00 Triage Note arrives via POV from home, 11/21/24 21:00 tripped and fell about 6 weeks ago injuring her L knee. never saw medical provider. was doing better but went on 19 mile hike yesterday and knee began swelling, now warm to touch, painful, nausea, fever of 101.4 at home. Took advil around 7pm. pain worse with ambulation (Last Reviewed 11/21/24 @ 23:59 by Emory Nettles) H/O colonoscopy (~05/2019) Most Recent Vital Signs Temperature 36.3 C L 11/22/24 01:19 Temperature Source Tympanic 11/22/24 01:13 Pulse 71 11/22/24 01:19 Pulse Rhythm Regular 11/22/24 01:19 Respiratory Rate 18 11/22/24 01:19 Respiratory Effort Normal 11/22/24 01:19 Respiratory Depth Normal 11/22/24 01:19 Respiratory Pattern Normal 11/22/24 01:19 Blood Pressure 105/65 11/22/24 01:19 Blood Pressure Mean 78 11/22/24 01:13 Blood Pressure Position Sitting 11/21/24 21:10 Pulse Oximetry 100 11/22/24 01:19 Oxygen Delivery Method Room Air 11/22/24 01:19 Oxygen Flow Rate 0 11/22/24 01:19 Pain Level 0 11/22/24 01:19 Comment 101.4 at 1800 took Advil aprrox 1900 11/21/24 21:10 Allergies No Known Allergies Allergy (Verified 11/21/24 21:05) Precautions Isolation Standard precaution 11/21/24 21:05 IV IV Catheter Gauge [Left 18 Antecubital] Diet Orders Category Date Time Status Regular/Normal [DIET] Nutrition 11/22/24 Breakfast Active Diagnostics 11/22/24 11/22/24 11/21/24 Range/Units 05:35 00:30 21:45 WBC Pending (4.4-10.8) 10^3/uL RBC Pending (3.93-5.22) 10^6/uL Hgb Pending (11.2-15.7) g/dL Hct Pending (36.0-46.0) % MCV Pending (80-95) fL MCH Pending (27.0-33.0) pg MCHC Pending (32.0-36.0) % RDW Pending (11.7-14.6) % Plt Count Pending (130-400) 10^3/uL MPV Pending (8.0-11.0) fL Immature Gran % % Neutrophils % % Lymphocytes % % Monocytes % % Eosinophils % % Basophils % % Nucleated RBC % (0.0-0.3) % Absolute Neutrophils (1.2-6.7) 10^3/uL Absolute Lymphocytes (1.2-3.4) 10^3/uL Absolute Monocytes (0.1-0.8) 10^3/uL Absolute Eosinophils (0.0-0.7) 10^3/uL Absolute Basophils (0.0-0.2) 10^3/uL ESR (0-30) mm/hr Sodium Pending (136-145) mmol/L Potassium Pending (3.5-5.1) mmol/L Chloride Pending (98-107) mmol/L Carbon Dioxide Pending (21.0-32.0) mmol/L Anion Gap Pending (3-11) mmol/L BUN Pending (7-18) mg/dL Creatinine Pending (0.55-1.02) mg/dL Est GFR (CKD-EPI 2020) Pending (mL/min/1.73m2) Glucose Pending (74-106) mg/dL Calcium Pending (8.5-10.1) mg/dL Magnesium (1.8-2.4) mg/dL Total Bilirubin Pending (0.2-1.0) mg/dL AST Pending (15-37) U/L ALT Pending (14-59) U/L Alkaline Phosphatase Pending (46-116) U/L C-Reactive Protein (<or=0.5) mg/dL Total Protein Pending (6.4-8.2) g/dL Albumin Pending (3.4-5.0) g/dL Procalcitonin ng/mL B. divergens/MO-1 PCR Babesia duncani (PCR) Babesia microti DNA PCR Lyme Disease Antibody COVID-19 Source Nasopharynx SARS-CoV-2 (PCR) Negative (Negative) E.chaffeensis DNA (PCR) E.ewingii/canis DNA PCR E.muris eauclairensis (PCR) Influenza Type A (PCR) Negative (Negative) Influenza Type B (PCR) Negative (Negative) RSV (PCR) Negative (Negative) A. phagocytophilum (PCR) Blood B. miyamotoi (PCR) Add-On Test Request DONE 11/21/24 Range/Units 21:45 WBC 13.60 H (4.4-10.8) 10^3/uL RBC 4.10 (3.93-5.22) 10^6/uL Hgb 12.0 (11.2-15.7) g/dL Hct 35.8 L (36.0-46.0) % MCV 87 (80-95) fL MCH 29.3 (27.0-33.0) pg MCHC 33.5 (32.0-36.0) % RDW 12.7 (11.7-14.6) % Plt Count 246 (130-400) 10^3/uL MPV 9.6 (8.0-11.0) fL Immature Gran % 0.3 % Neutrophils % 76.6 % Lymphocytes % 11.5 % Monocytes % 10.8 % Eosinophils % 0.4 % Basophils % 0.4 % Nucleated RBC % 0.0 (0.0-0.3) % Absolute Neutrophils 10.42 H (1.2-6.7) 10^3/uL Absolute Lymphocytes 1.56 (1.2-3.4) 10^3/uL Absolute Monocytes 1.47 H (0.1-0.8) 10^3/uL Absolute Eosinophils 0.05 (0.0-0.7) 10^3/uL Absolute Basophils 0.05 (0.0-0.2) 10^3/uL ESR 19 (0-30) mm/hr Sodium 138 (136-145) mmol/L Potassium 3.7 (3.5-5.1) mmol/L Chloride 102 (98-107) mmol/L Carbon Dioxide 26.4 (21.0-32.0) mmol/L Anion Gap 9.6 (3-11) mmol/L BUN 11 (7-18) mg/dL Creatinine 0.9 (0.55-1.02) mg/dL Est GFR (CKD-EPI 2020) 75.03 (mL/min/1.73m2) Glucose 112 H (74-106) mg/dL Calcium 9.0 (8.5-10.1) mg/dL Magnesium 2.3 (1.8-2.4) mg/dL Total Bilirubin 0.7 (0.2-1.0) mg/dL AST 17 (15-37) U/L ALT 24 (14-59) U/L Alkaline Phosphatase 54 (46-116) U/L C-Reactive Protein 7.32 H (<or=0.5) mg/dL Total Protein 7.1 (6.4-8.2) g/dL Albumin 3.8 (3.4-5.0) g/dL Procalcitonin 0.32 ng/mL B. divergens/MO-1 PCR Pending Babesia duncani (PCR) Pending Babesia microti DNA PCR Pending Lyme Disease Antibody Pending COVID-19 Source SARS-CoV-2 (PCR) (Negative) E.chaffeensis DNA (PCR) Pending E.ewingii/canis DNA PCR Pending E.muris eauclairensis (PCR) Pending Influenza Type A (PCR) (Negative) Influenza Type B (PCR) (Negative) RSV (PCR) (Negative) A. phagocytophilum (PCR) Pending Blood B. miyamotoi (PCR) Pending Add-On Test Request DONE 11/21/24 22:55 Blood Culture - Pending Blood 11/21/24 21:52 Blood Culture - Pending Blood Intake and Output - 24 Hour Total 11/21/24 20:59 thru 11/22/24 01:33 Intake Total 300 Balance 300 Weight 63.503 kg Intake: IV 300 Falls Risk Assessment History of Falls Previous History 11/22/24 01:19 Contributing Factors No Factors 11/22/24 01:19 Ambulatory Aids Independent 11/22/24 01:19 Tubes/Lines None 11/22/24 01:19 Gait Evaluation No gait disturbance 11/22/24 01:19 Cognition No cognitive impairment 11/22/24 01:19 Fall Total Score 15 11/22/24 01:19 Level of Risk Standard/Low Risk 11/22/24 01:19 Problems (Last Reviewed 11/21/24 @ 23:59 by Emory Nettles) Septic prepatellar bursitis of left knee (Acute) Cellulitis (Acute) v v v v v v v v v Sending and/or Receiving Nurses: Please use comment section below to note any information pertinent to the patient hand-off not included above. Information / Comments: pt. transfer from ED to Room 215 via stretchers: A&Ox4.VSS RA denied SOB , denied N/V , Heart regular , Skin Dry redness Left Knee Cellulitis Ambulated independent denied pain , continent both last BM 11/21 Report received from:Bree
[2024-11-22] MEDS: Heparin 5,000 UNITS/ML VIAL 5000 UNITS SC ×2 (06:02→13:37)
[2024-11-22 06:44] LABS: HCT 34.1 % (36.0-46.0); HGB 11.7 g/dL (11.2-15.7); MCH 29.9 pg (27.0-33.0); MCHC 34.3 % (32.0-36.0); MCV 87 fL (80-95); MPV 9.8 fL (8.0-11.0); Platelet Count 239 10^3/uL (130-400); RBC 3.91 10^6/uL (3.93-5.22); RDW 12.7 % (11.7-14.6); RDW-SD 40.8 fL; WBC 12.37 10^3/uL (4.4-10.8)
[2024-11-22 07:11] LABS: ALT 22 U/L (14-59); AST 16 U/L (15-37); Albumin 3.6 g/dL (3.4-5.0); Alkaline Phosphatase 55 U/L (46-116); Anion Gap 9.6 mmol/L (3-11); BUN 8 mg/dL (7-18); Bilirubin, Total 1.0 mg/dL (0.2-1.0); CO2 25.4 mmol/L (21.0-32.0); Calcium 9.0 mg/dL (8.5-10.1); Chloride 102 mmol/L (98-107); Estimated GFR 101.44 (mL/min/1.73m2); Glucose 111 mg/dL (74-106); Potassium 3.7 mmol/L (3.5-5.1); Sodium 137 mmol/L (136-145); Total Protein 6.9 g/dL (6.4-8.2)
--- NOTE | 2024-11-22 08:29 | PT.INIE ---
PT Notes Visit Reasons: Septic prepatellar bursitis/cellulitis left knee Physical Therapy Inpatient Initial Evaluation Date: 11/22/2024 Referring Doctor: Emory Nettles MD PT Orders: PT CONSULT: D/C PT Non-Dependent Precautions: Full code. Fall. Standard. Protected weight bearing through L LE unless cleared by orthopedic surgeon. Patient Profile/Admitting Diagnosis: Stephanie Pop is a 54-year-old female admitted to the ED on 11/21/2024 with complaints of fever, chills, muscle pain, left knee pain with redness. Patient had a fall in October 03, 2024 while running hitting her left knee when she landed. Most recent x-ray suspected cellulitis versus edema versus septic prepatellar bursitis. Orthopedic consultation has been sent for a possible left knee drainage. PMHX: All Active Problems (Updated 11/22/24 @ 06:51 by Emory Nettles) Septic prepatellar bursitis of left knee (Acute) Cellulitis (Acute) Colon polyp (Acute) Surgical History H/O colonoscopy (~05/2019) 05/2019 - low grade serrated adenoma. Repeat in 5 years. 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 Equipment Owned/DME: None Subjective: Stated that her swelling and bruising since October have markedly decreased along her pain level which was why she began to engage in hiking and running again. This past Wednesday, her L knee started to become warm again. The day prior to her admission sto this hopsital, she was able to manage going uphill [place] with [place] gradual 4,000 mile elevation but going down the hill proved to be immensely challenging. She decided to go the ED due to fever, chills, muscle pain, and persistent L knee pain/redness. Objective: General Observation: L knee erythematous and swollen but symptoms have been way decreased since onset of fall/hitting knee on the L side back in October as shown to this provider by patient through mobile phone pictures. L warm knee to touch. IV through L UE. Mental Status: Alert and oriented as to person, place, time, and purpose. Able to pay attention, focus, and respond appropriately. Pain: 2/10 at rest; 5/10 with weight bearing Vital Signs: Closely monitored by nursing staff ROM: Left Lower Extremity: Hip flexion WFL. Hip abduction WFL. Knee flexion -35 to 80 degrees. Knee extension -35 degrees. Ankle dorsiflexion WFL. Ankle plantarflexion WFL. Strength: Left Lower Extremity: Hip flexors 4-/5. Hip abductors 4-/5. Knee flexors 3-/5. Knee extensors 3-/5. Ankle dorsiflexors 4/5. Ankle plantarflexors 4/5. Sensation: Intact as to pain and light pressure in B LE Bed Mobility/Transfers: Supine to sit supervision Sit to supine supervision Sit to stand supervision but with report of up to 5/10 pain in the L knee Stand to sit supervision but with report of up to 5/10 pain in the L knee Bed to toilet seat with supervision but with report of up to 5/10 pain in the L knee Toilet seat to bed with supervision but with report of up to 5/10 pain in the L knee Gait: Patient verbalized that she was able to walk to the bathroom from edge of bed and then back without an assistive device but with moderate antalgic gait due to pain of up to 5/10. Stairs: Not tested Balance: Static Sitting: Normal Dynamic Sitting: Normal Static Standing: Fair Dynamic Standing: Fair Special Tests: Mobility Limitations Standardized Measure [facility] 6 clicks Basic Mobility Inpatient Short Form: Raw Score: 19 CMS Score: 42% deficit Informed Consent/Education: Patient was instructed in purpose of PT consult and plan of care. Agreeable to proceed with established PT POC to achieve personal goals. Patient preferred to wait on her sister who herself is an orthopedic doctor before she makes any decisions moving forward with her care. Assessment: Further mobilization OOB deferred until cleared by orthopedic surgeon or after potential L knee joint aspiration/drainage is done by orthopedic surgeon. Will plan on progressing mobility level and performing L knee rehab once infectious process in under control. Patient presents with clinical signs and symptoms consistent with current/admitting diagnoses that have resulted to mobility limitations, gait instability, generalized weakness, and overall ADL decline as demonstrated by the following impairment level findings: 1. Decreased strength to L knee major muscle groups 2. Impaired sitting/standing balance 3. Impaired activity tolerance 4. Limitation of joint range of motion in L knee 5. Pain and redness in L knee 6. Swellingin L knee Impairments are contributing to the following functional limitations: 1. Decline in bed mobility skills 2. Decline in transfer skills 3. Difficulty with ambulation without assistive device and physical assistance 4. Increased completion time for mobility ADL performance 5. Increased risk for falls 6. Difficulty with managing steps alone safely Patient is [place] a 33634 moderate complexity based on the following: History: 54-year-old female with past medical history as indicated above Examination: Demonstrable impairment in strength, balance, and mobility level with underlying impairments and functional limitations as exhibited above as well as deficit score of 42% utilizing the [facility] Mobility Inpatient Short Form Presentation: Evolving Decision Makin moderate complexity Goals: Goals X1 week 1. Supine-Sit independent 2. Sit-Supine independent 3. Sit-Stand independent 4. Stand-Sit independent with least restrictive device 5. Bed-Chair independent with least restrictive device 6. Chair-Bed independent with least restrictive device 7. Independent gait on level surface with use of with least restrictive device for at least 150 feet without report of pain nor dyspnea 8. Independent stair negotiation while holding onto B rails for at least 3 steps without report of pain nor dyspnea 9. Independent with home exercise program 10. Good static and dynamic standing balance/tolerance Plan of Care/Treatment Plan: 1-2x/day, 7 days/week x 1 week. Plan of care has been reviewed with the FOREST LOGISTICS MANAGER providing the service under Physical Therapy direction. Initiate Physical Therapy intervention for pain management as needed, strengthening, bed mobility, transfers, gait, stairs, balance training, and use of assistive device. DISCHARGE RECOMMENDATIONS: OP PT for L knee strengthening to return to pre-morbid mobility level TREATMENT CODE/TIME: 23231 x 18 minutes for 1 unit (8:29-8:47). Thank you for the opportunity to participate in the care of this patient. Tawanna Salamanca PT, DPT, CLT [facility] [place], [place] L knee AROM for flexion -35 to 80 degrees regulatory attorney
[2024-11-22] MEDS: cefTRIAXone 1 GM/50 ML BAG IVPB (08:30)
[2024-11-22] MEDS: Normal Saline Flush 10 ML SYR IVP ×3 (08:30→21:04)
--- NOTE | 2024-11-22 08:37 | OCONE_ITS ---
Date of service: 11/22/24 Time of Service: 11:15 Assessment and Plan Assessment and plan (1) Septic prepatellar bursitis of left knee: Status: Acute Assessment and plan: 54-year-old female admitted overnight for left prepatellar septic bursitis. Admitted to the hospitalist team initiated both Rocephin and vancomycin. Orthopedic surgery not on-call, but contacted and consult requested the following day. Initial injury occurred on October 03 when she landed directly onto her left knee. Describes significant bruising about the knee and just above the knee but did not seek medical attention at that time. With mild activity modification she felt like she returned to normal. Had been wearing a compression sleeve with activity. No sensation of instability. No prior knee issues. She then went on a hike 2 days ago, denies injury. At the end of the hike she noticed her knee was bothering her more, subsequently developed swelling and redness. Developed myalgias and a fever at home of 101.4. Otherwise very healthy. PT evaluated the patient earlier and had her range of motion at about 35-80 Patient appears well, nontoxic, resting comfortably in the hospital bed. Left knee exam: Intact skin without ecchymosis or obvious deformity. Significant diffuse anterior knee swelling with large palpable bursa collection about the patella. Noncircumferential erythema which remains roughly within the marker lines made in the ER yesterday. Not significantly hot or red. No proximal streaking/lymphangitic streaking. AROM about 15-80 degrees. There is no significant discomfort with active range of motion although patient does feel tightness anteriorly. Expected discomfort about the anterior knee and patella bursitis. No discomfort over the medial and lateral joint line. Knee is stable to varus and valgus stress without significant discomfort. Sensation intact throughout. Calf is soft, nontender, easily compressed. Normal pedal pulse and capillary refill. Tolerates short arc motion with ease. Lab values upon admission; WBC 13.6 CRP 7.32 procalcitonin 0.32. COVID- negative. Tickborne panel pending. Repeat WBC today 12.37 improved. Afebrile in hospital. Left knee x-ray from 11/21/2024 reveals significant prepatellar soft tissue swelling. No acute injury noted. Discussed in length with patient and orthopedic pediatric sports medicine sister Karlene Mcclain MD. Examination most consistent with a subacute prepatellar bursitis, which became secondarily infected. No signs or symptoms of septic [place] knee joint. Discussed continuing IV antibiotics, repeating CRP, and close monitoring. Also discussed prepatellar aspiration versus surgical irrigation and debridement. Given significant improvement already on antibiotics, recommend continuing medical management for now. Recommend usual coverage for community MRSA and strep. Does not appear to need any broader coverage again due to notable improvements after about 12 hours of antibiotics. Ordered probiotic, which should be used daily while on antibiotics. Also ordered oral naproxen as anti-inflammatory option for pain swelling and discomfort. May use ice and Mark compressive wrap for compression as well. Also encourage increasing knee range of motion, but no need to force anything. May ambulate as tolerated, but use knee compression if ambulatory for a while, and elevation while resting. Reviewed potential I&D for acute infection, which seems unlikely at this time, versus prepatellar bursectomy for persistent problem, which can be followed as an outpatient. Reviewed with hospitalist team. CRP order placed for tomorrow morning. N.p.o. after midnight pending orthopedic evaluation in the AM. Call if any worsening or concerns. PFSH All Active Problems (Updated 11/22/24 @ 06:51 by Emoyr Nettles) Septic prepatellar bursitis of left knee (Acute) Cellulitis (Acute) Colon polyp (Acute) Surgical History H/O colonoscopy (~05/2019) 05/2019 - low grade serrated adenoma. Repeat in 5 years. Social History Smoking/Tobacco Use Status: Never Smoking risk assessment performed?: Yes Alcohol Intake: current Alcohol Intake frequency: a few times a week Alcohol type: wine Drug use: Never Substance use type: does not use Housing: house Do you feel safe at home: Yes Do you feel safe in your relationship?: Yes Results Last Vital Signs Temp 36.3 C L 11/22/24 01:19 Pulse 71 11/22/24 01:19 Resp 18 11/22/24 01:19 BP 105/65 11/22/24 01:19 Pulse Ox 100 11/22/24 01:19 Labs 11/22/24 06:33 11/22/24 06:33 Labs: Laboratory Results - last 24 hr 11/21/24 11/21/24 11/22/24 21:45 21:45 00:30 WBC 13.60 H RBC 4.10 Hgb 12.0 Hct 35.8 L MCV 87 MCH 29.3 MCHC 33.5 RDW 12.7 Plt Count 246 MPV 9.6 Immature Gran % 0.3 Neutrophils % 76.6 Lymphocytes % 11.5 Monocytes % 10.8 Eosinophils % 0.4 Basophils % 0.4 Nucleated RBC % 0.0 Absolute Neutrophils 10.42 H Absolute Lymphocytes 1.56 Absolute Monocytes 1.47 H Absolute Eosinophils 0.05 Absolute Basophils 0.05 ESR 19 Sodium 138 Potassium 3.7 Chloride 102 Carbon Dioxide 26.4 Anion Gap 9.6 BUN 11 Creatinine 0.9 Est GFR (CKD-EPI 2020) 75.03 Glucose 112 H Calcium 9.0 Magnesium 2.3 Total Bilirubin 0.7 AST 17 ALT 24 Alkaline Phosphatase 54 C-Reactive Protein 7.32 H Total Protein 7.1 Albumin 3.8 Procalcitonin 0.32 COVID-19 Source Nasopharynx SARS-CoV-2 (PCR) Negative Influenza Type A (PCR) Negative Influenza Type B (PCR) Negative RSV (PCR) Negative Add-On Test Request DONE DONE 11/22/24 06:33 WBC 12.37 H RBC 3.91 L Hgb 11.7 Hct 34.1 L MCV 87 MCH 29.9 MCHC 34.3 RDW 12.7 Plt Count 239 MPV 9.8 Immature Gran % Neutrophils % Lymphocytes % Monocytes % Eosinophils % Basophils % Nucleated RBC % Absolute Neutrophils Absolute Lymphocytes Absolute Monocytes Absolute Eosinophils Absolute Basophils ESR Sodium 137 Potassium 3.7 Chloride 102 Carbon Dioxide 25.4 Anion Gap 9.6 BUN 8 Creatinine 0.7 Est GFR (CKD-EPI 2020) 101.44 Glucose 111 H Calcium 9.0 Magnesium Total Bilirubin 1.0 AST 16 ALT 22 Alkaline Phosphatase 55 C-Reactive Protein Total Protein 6.9 Albumin 3.6 Procalcitonin COVID-19 Source SARS-CoV-2 (PCR) Influenza Type A (PCR) Influenza Type B (PCR) RSV (PCR) Add-On Test Request
[2024-11-22 08:44] VITALS: PULSE 83; RESP 18; TEMP 37.7; O2SAT 97
--- NOTE | 2024-11-22 10:21 | PGE_ITS ---
Date of Service Date of service: 11/22/24 Time of Service: 10:21 Assessment and Plan Assessment and plan (1) Septic prepatellar bursitis of left knee: Status: Acute Assessment and plan: 54-year-old female admitted overnight for left prepatellar septic bursitis. Continue Rocephin and vancomycin with pharmacy dosing Orthopedic consult with Dr. Park : -PRN NSAIDS for pain - will discontinue PRN APAP -No signs or symptoms of septic [place] knee joint and ongoing IV antibiotic with probiotics -Discussed exposure to pound and muñoz water exposure- will continue to monitor and continue current antibiotics -Ice and Mark compressive wrap with ambulation -Elevate LLE at rest -NPO after midnight for further evaluation by ortho in AM Leukocytosis upon admission - improving Trending inflammatory markers PT consult -outpatient PT- crutches provided Tick-borne panel ordered on admission is pending (2) On deep vein thrombosis (DVT) prophylaxis: Status: Acute Assessment and plan: Heparin SC for DVT prophylaxis hold prior to OR (3) Discharge planning issues: Status: Acute Assessment and plan: PT consult -outpatient PT- crutches provided Oral antibiotics on discharge Discussed with Dr. Castrejon Subjective Subjective Patient reports: feels better, pain is less, tolerating liquids well, tolerating a regular diet and voiding w/o difficulty; denies diarrhea, nausea, vomiting, shortness of breath or fever Interval history since last seen: Generalize aches Exam Narrative Exam Narrative: 54 yo female looking younger than stated age, alert and oriented X4, neurologically intact, clear lungs, S1 S2 regular rhythm, abdomen is non- distended soft and non-tender, no CVA tenderness, R knee with erythema, warmth and swelling w/o drainage or open lesion, no fluctuance and minimal trace pitting edema, Objective Last Vital Signs Temp 37.7 C H 11/22/24 08:44 Pulse 83 11/22/24 08:44 Resp 18 11/22/24 08:44 BP 105/65 11/22/24 01:19 Pulse Ox 97 11/22/24 08:44 Laboratory Results - last 24 hr 11/21/24 11/21/24 11/22/24 21:45 21:45 00:30 WBC 13.60 H RBC 4.10 Hgb 12.0 Hct 35.8 L MCV 87 MCH 29.3 MCHC 33.5 RDW 12.7 Plt Count 246 MPV 9.6 Immature Gran % 0.3 Neutrophils % 76.6 Lymphocytes % 11.5 Monocytes % 10.8 Eosinophils % 0.4 Basophils % 0.4 Nucleated RBC % 0.0 Absolute Neutrophils 10.42 H Absolute Lymphocytes 1.56 Absolute Monocytes 1.47 H Absolute Eosinophils 0.05 Absolute Basophils 0.05 ESR 19 Sodium 138 Potassium 3.7 Chloride 102 Carbon Dioxide 26.4 Anion Gap 9.6 BUN 11 Creatinine 0.9 Est GFR (CKD-EPI 2020) 75.03 Glucose 112 H Calcium 9.0 Magnesium 2.3 Total Bilirubin 0.7 AST 17 ALT 24 Alkaline Phosphatase 54 C-Reactive Protein 7.32 H Total Protein 7.1 Albumin 3.8 Procalcitonin 0.32 COVID-19 Source Nasopharynx SARS-CoV-2 (PCR) Negative Influenza Type A (PCR) Negative Influenza Type B (PCR) Negative RSV (PCR) Negative Add-On Test Request DONE DONE 11/22/24 06:33 WBC 12.37 H RBC 3.91 L Hgb 11.7 Hct 34.1 L MCV 87 MCH 29.9 MCHC 34.3 RDW 12.7 Plt Count 239 MPV 9.8 Immature Gran % Neutrophils % Lymphocytes % Monocytes % Eosinophils % Basophils % Nucleated RBC % Absolute Neutrophils Absolute Lymphocytes Absolute Monocytes Absolute Eosinophils Absolute Basophils ESR Sodium 137 Potassium 3.7 Chloride 102 Carbon Dioxide 25.4 Anion Gap 9.6 BUN 8 Creatinine 0.7 Est GFR (CKD-EPI 2020) 101.44 Glucose 111 H Calcium 9.0 Magnesium Total Bilirubin 1.0 AST 16 ALT 22 Alkaline Phosphatase 55 C-Reactive Protein Total Protein 6.9 Albumin 3.6 Procalcitonin COVID-19 Source SARS-CoV-2 (PCR) Influenza Type A (PCR) Influenza Type B (PCR) RSV (PCR) Add-On Test Request Time Spent with Patient Time Spent with Patient: >50 minutes Time was spent: preparing to see the patient(eg.review tests), obtaining and/or reviewing separately otained hiistory, ordering medications,tests, procedures, referring, communicating with other health career technical education teacher, indepentently interpreting results, counseling the patient and care coordination
[2024-11-22] MEDS: VANCOMYCIN/WATER (PEG) 750 MG/150 ML BAG 150 MG IVPB (11:12)
--- NOTE | 2024-11-22 11:50 | PDOC.CMIN ---
Date of service: 11/22/24 Time of Service: 11:50 Care Management Initial Assmt Initial Assessment Reason for Hospitalization: septic prepatellar bursitis of the left knee, cellulitis Functional Status/Living Situation Patient Presentation: Brianda presented to the ED last night with c/o significant swelling of her left knee, and appeared to have cellulitis. She also had a fever and chills. She was admitted for IV antibiotics and orthopedics consult. Brianda was lying in bed, leg elevated, when CM met with her today. Her sister, Karlene, was also present. Both were very pleasant and easy to converse with. Brianda stated that her pain is not too bad, except for when she first gets up and her first couple of steps. She stated that ortho had been in to see her and she is cleared for full weight bearing. Ortho is not planning to drain the knee today, but will be keeping an eye on her closely, and drainage is not completely ruled out. Brianda lives mainly on one floor in her home, and does not feel that she will have any difficulty in the home. PT is planning to see her again this afternoon, and will be dispensing a walking aid. Brianda is , but her is out of town until Wednesday. Her sister will care for her at home, if needed. 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 She will not require a work note. 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) Instrumental Activities of Daily Living (ADLs): Independent Medications Medication Management: No Issues/Barriers identified Physical Functioning/Mobility Assistive Device: will be issued an assistive device by PT to use for short term Advance Directives Advance Directives: Do you have an Advance Directive: Y 05/09/19, 12:33 AD On File at [facility]: Y 01/04/24, 08:01 Date Asked AD Date Reviewed 11/22/24 Today, 00:29 COLST On File at [facility] No 11/21/24, 21:02 COLST Date Scanned Code Status Resuscitation Status Full Code Portal Pt does not currently have a portal and education provided: Yes Insurance Coverage/Financial Issues Insurance: [employer] [place] Care Team Visit Care Team Role Provider Type Milena Michelle APRN MD [facility] STAFF PHYSICIAN Unknown Unknown Primary Care Provider STAFF PHYSICIAN Nabor Szymanski MD Other Providers [facility] STAFF PHYSICIAN InPatient John Lowe Other Providers OTHER Park Owen NP Emergency Provider NURSE PRACTITIONER Emory Nettles Admit Provider NON-[facility] STAFF PHYSICIAN Attending Provider Discharge Potential Discharge Needs: PCP F/U Appt and Other (ortho f/u) Anticipated Barriers to Discharge: None Identified Patient/Family Education Needs: Review discharge instructions, discuss Ask Me Three Transportation: Private vehicle Plan: Anticipate that Brianda will discharge home with no new services once she is medically cleared. She will f/u with her PCP and likely with ortho, and continue per her plan of care. Brianda will transport home with family. CM will continue to follow. Social Determinants of Health Screening Social Determinants of health last assessed in clinic: 11/22/24 Will the Patient Participate in the Screening?: Yes Do you worry about having a steady place to live?: yes What is your living situation today?: I have housing today, but am worried about losing it Problems where you live: no known problems In the past 12 months, have you had to go without electric, gas, oil or water in your home?: no 1. Within the past 12 months, we worried whether our food would run out before we got money to buy more.: Never true 2. Within the past 12 months, the food we bought just didn't last and we didn't have money to get more.: Never true Has lack of transportation kept you from medical appointments or from doing things needed for daily living?: no Has anyone in your life made you feel unsafe or unsupported?: no How hard is it for you to pay for the very basics like food, housing, medical care, and heating? Would you say it is:: Not hard at all Do you want help finding or keeping work or a job?: I do not need or want help If for any reason you need help with day-to-day activities such as bathing, preparing meals, shopping, managing finances, etc., do you get the help you need?: I don?t need any help How often do you feel lonely or isolated from those around you?: Never Do you speak a language other than Swedish at home?: No Does the patient want assistance with any of the above?: No Health Related Social Needs Health related social needs: housing instability, housed, with risk of homelessness (Z59.811) Health related social needs details: pt. doesn't house PFSH All Active Problems (Updated 11/22/24 @ 06:51 by Emory Nettles) Septic prepatellar bursitis of left knee (Acute) Cellulitis (Acute) Colon polyp (Acute) Surgical History H/O colonoscopy (~05/2019) 05/2019 - low grade serrated adenoma. Repeat in 5 years. Social History Smoking/Tobacco Use Status: Never Smoking risk assessment performed?: Yes Alcohol Intake: current Alcohol Intake frequency: a few times a week Alcohol type: wine Drug use: Never Substance use type: does not use Housing: house Do you feel safe at home: Yes Do you feel safe in your relationship?: Yes
[2024-11-22] MEDS: Naproxen 500 MG TAB PO (14:00)
--- NOTE | 2024-11-22 14:01 | PTTR_ITS ---
PT Notes Visit Reasons: Septic prepatellar bursitis/cellulitis left knee Physical Therapy Inpatient Treatment Note Date: 11/22/2024 Precautions: Full code. Fall. Standard. WBAT through L LE with AD. Subjective: Pain level decreased to 3/10 through the L LE with use of bilateral axillary crutches. Denide headache, chest pain, and lightheadedness throughout session. Objective: General Observation: L knee erythematous and swollen but symptoms have been way decreased since onset of fall/hitting knee on the L side back in October as shown to this provider by patient through mobile phone pictures. L knee warm to touch. IV through L UE. Mental Status: Alert and oriented as to person, place, time, and purpose. Able to pay attention, focus, and respond appropriately. Pain: 2/10 at rest; 3/10 with weight bearing Vital Signs: Closely monitored by nursing staff Bed Mobility/Transfers: Supine to sit supervision Sit to supine supervision Sit to stand supervision but with report of up to 3/10 pain in the L knee Stand to sit supervision but with report of up to 3/10 pain in the L knee Bed to toilet seat with supervision but with report of up to 3/10 pain in the L knee Toilet seat to bed with supervision but with report of up to 3/10 pain in the L knee Gait: Faciliated safe and correct performance of 3-point gait pattern after properly fitting bilateral axillary crutches to patient. Pain level increased to only 3/10 with sensation of mild instability in the L knee but was made in check by the use of crutches. Stairs: Guided patient with safe navigation of 6 x 4-inch steps and 4 x 2-inch steps while using bilateral exillary crutches, step-to gait pattern with minimal verbal cueing for limb sequence, AD management, and safe turning. Balance: Static Sitting: Normal Dynamic Sitting: Normal Static Standing: Fair Dynamic Standing: Fair THERA EX: Instructed patient on performance of quadriceps sets 5 sh x 10 reps every hour. Assessment: Patient with improved weight bearing tolerance, pain control, ambulation distance, and stability with use of bilateral axillary crutches for all OOB activities. Plan of Care/Treatment Plan: 1-2x/day, 7 days/week x 1 week. Plan of care has been reviewed with the TRANSPORTATION SERVICES REPRESENTATIVE providing the service under Physical Therapy direction. Initiate Physical Therapy intervention for pain management as needed, strengthening, bed mobility, transfers, gait, stairs, balance training, and use of assistive device. DISCHARGE RECOMMENDATIONS: OP PT for L knee strengthening to return to pre-morbid mobility level TREATMENT CODE/TIME: 49849 x 41 minutes for 3 units (14:01-14:42).
[2024-11-22 21:06] LABS: Vancomycin, Random 6.2 ug/mL
[2024-11-22 21:08] VITALS: BP 93/77; PULSE 66; RESP 18; TEMP 36.2; O2SAT 97
[2024-11-23] MEDS: VANCOMYCIN/WATER (PEG) 750 MG/150 ML BAG 150 MG IVPB (00:01)
[2024-11-23 01:48] VITALS: BP 98/60; PULSE 67; RESP 18; TEMP 36.1; O2SAT 98
[2024-11-23 07:21] LABS: HCT 37.1 % (36.0-46.0); HGB 12.3 g/dL (11.2-15.7); MCH 29.4 pg (27.0-33.0); MCHC 33.2 % (32.0-36.0); MCV 89 fL (80-95); MPV 9.9 fL (8.0-11.0); Platelet Count 242 10^3/uL (130-400); RBC 4.19 10^6/uL (3.93-5.22); RDW 12.6 % (11.7-14.6); RDW-SD 41.1 fL; WBC 10.26 10^3/uL (4.4-10.8)
--- NOTE | 2024-11-23 07:21 | W.PM.PROGNOT ---
Date of Service Date of service: 11/23/24 Time of Service: 15:02 Assessment and Plan Assessment and plan (1) Septic prepatellar bursitis of left knee: Status: Acute Assessment and plan: 54-year-old female with resolving Left knee septic prepatellar bursitis. Overall patient feels moderate improvement. Without fever or myalgias. Focus on compression and elevation overnight. Is ambulating well. Increased range of motion. Erythema is decreasing. Denies new symptoms. Patient appears well, nontoxic, currently ambulating without assistance down the hallway. Left knee exam: Intact skin without ecchymosis or obvious deformity. Large palpable prepatellar bursa collection about the same as yesterday however the surrounding swelling is moderately improved. The noncircumferential erythema is improving and now receding from the marker lines. Not significantly hot or red. No proximal/lymphangitic streaking. Active range of motion about 10-90. There is no significant discomfort with active range of motion although patient does feel tightness anteriorly. Expected discomfort about the anterior knee and patella bursitis. No discomfort over the medial and lateral joint line. Knee is stable to varus and valgus stress without significant discomfort. Sensation intact throughout. Calf is soft, nontender, easily compressed. Normal pedal pulse and capillary refill. Tolerates short arc motion with ease. White blood cell count is now 10.26. Repeat CRP slightly lower. Patient was apprehensive to take an NSAID on empty stomach this morning. RN will request p.o. Tylenol from the hospitalist team. Patient without systemic symptoms. Cellulitis appears to be improving. Will follow CRP before making decision regarding potential I&D. For the time being we will remain NPO. Will reassess later this morning. PM update?patient clinically doing well. Comfortable, ambulatory, left knee redness/cellulitis greatly improved with a more focal maybe 30% area in obvious prepatellar fluid collection. Full extension to about 90 degrees flexion only limited by anterior fluid. Reviewed the option for aspiration at this time to remove old infected fluid and probably accelerate recovery including return to active lifestyle. Aspiration done at the bedside without issue-see procedure note. Recommend compression, elevation, and taking it easy for at least the next few days. Avoid kneeling or any anterior knee trauma. Reviewed thoroughly with the patient and her support family and friends. My office will call the patient on Wednesday to see how she is feeling and arrange follow-up with me. Objective Last Vital Signs Temp 97.0 F L 11/23/24 01:48 Pulse 67 11/23/24 01:48 Resp 18 11/23/24 01:48 BP 98/60 L 11/23/24 01:48 Pulse Ox 98 11/23/24 01:48 Laboratory Results - last 24 hr 11/22/24 20:20 Random Vancomycin 6.2 Procedures Bursa Procedures Site of procedure: prepatellar bursa (LEFT) XRAY obtained: other (Obvious anterior prepatellar soft tissue swelling and fluid collection) Antisepsis used: Chlorhexidine Local anesthetic used: other anesthetic (Cold spray) Fluid obtained (ml): 30 Fluid type: cloudy Patient tolerated procedure: well Complications: none Additional comments: Chlorhexidine used to prep, cold spray for pain control, sterile gloves and sterile technique directly lateral with 18-gauge needle to the contained fluid collection with about 30 cc of old fluid and necrotic material and pus removed from multiloculated pre-/suprapatellar fluid collection. Placed sterilely into 3 specimen cups for culture. Gauze placed over the site and knee compressed with Mark bandage. CPT# 58204 Time Spent with Patient Time Spent with Patient: 35-49 minutes Time was spent: preparing to see the patient(eg.review tests), obtaining and/or reviewing separately otained hiistory, ordering medications,tests, procedures, referring, communicating with other health healthcare applications analyst, indepentently interpreting results, counseling the patient and care coordination
[2024-11-23 08:12] LABS: C-Reactive Protein 7.11 mg/dL (<or=0.5)
[2024-11-23 08:14] VITALS: BP 101/61; PULSE 68; RESP 18; TEMP 36.6; O2SAT 98
[2024-11-23] MEDS: Lactobacillus Acidophilus CAP 1 CAP PO (08:16)
[2024-11-23] MEDS: Normal Saline Flush 10 ML SYR IVP ×2 (08:16→12:00)
[2024-11-23] MEDS: cefTRIAXone 1 GM/50 ML BAG IVPB (08:16)
[2024-11-23 08:23] LABS: ALT 27 U/L (14-59); AST 19 U/L (15-37); Albumin 3.7 g/dL (3.4-5.0); Alkaline Phosphatase 63 U/L (46-116); Anion Gap 11.0 mmol/L (3-11); BUN 7 mg/dL (7-18); Bilirubin, Total 1.0 mg/dL (0.2-1.0); CO2 24.0 mmol/L (21.0-32.0); Calcium 9.4 mg/dL (8.5-10.1); Chloride 104 mmol/L (98-107); Estimated GFR 101.44 (mL/min/1.73m2); Glucose 109 mg/dL (74-106); Potassium 3.9 mmol/L (3.5-5.1); Sodium 139 mmol/L (136-145); Total Protein 7.5 g/dL (6.4-8.2)
--- NOTE | 2024-11-23 09:22 | W.PM.PROGNOT ---
Date of Service Date of service: 11/23/24 Time of Service: 09:22 Assessment and Plan Assessment and plan (1) Septic prepatellar bursitis of left knee: Start date: 11/23/24 Start time: 10:09 Status: Acute Assessment and plan: 54-year-old female admitted overnight for left prepatellar septic bursitis. Continue Rocephin and vancomycin with pharmacy dosing Orthopedic consult with Dr. Park : -PRN NSAIDS for pain - discontinued PRN APAP restarted as per request -No signs or symptoms of septic [place] knee joint and ongoing IV antibiotic with probiotics -Discussed exposure to pound and muñoz water exposure- will continue to monitor and continue current antibiotics -Ice and Mark compressive wrap with ambulation -Elevate LLE at rest - Resume diet Leukocytosis upon admission - improving Trending inflammatory markers PT consult -outpatient PT- crutches provided Tick-borne panel ordered on 11/21/24 is still pending (2) On deep vein thrombosis (DVT) prophylaxis: Status: Acute Assessment and plan: Heparin SC for DVT prophylaxis hold prior to OR or aspiration SCD's (3) Discharge planning issues: Status: Acute Assessment and plan: PT consult -outpatient PT- crutches provided Oral antibiotics on discharge Discussed with Dr. Castrejon Objective Last Vital Signs Temp 36.6 C 11/23/24 08:14 Pulse 68 11/23/24 08:14 Resp 18 11/23/24 08:14 BP 101/61 11/23/24 08:14 Pulse Ox 98 11/23/24 08:14 Laboratory Results - last 24 hr 11/22/24 11/23/24 20:20 07:10 WBC 10.26 RBC 4.19 Hgb 12.3 Hct 37.1 MCV 89 MCH 29.4 MCHC 33.2 RDW 12.6 Plt Count 242 MPV 9.9 Sodium 139 Potassium 3.9 Chloride 104 Carbon Dioxide 24.0 Anion Gap 11.0 BUN 7 Creatinine 0.7 Est GFR (CKD-EPI 2020) 101.44 Glucose 109 H Calcium 9.4 Total Bilirubin 1.0 AST 19 ALT 27 Alkaline Phosphatase 63 C-Reactive Protein 7.11 H Total Protein 7.5 Albumin 3.7 Random Vancomycin 6.2 Time Spent with Patient Time Spent with Patient: >50 minutes Time was spent: preparing to see the patient(eg.review tests), obtaining and/or reviewing separately diego funez ordering medications,tests, procedures, referring, communicating with other health resident care manager rn, indepentently interpreting results, counseling the patient and care coordination
[2024-11-23] MEDS: Acetaminophen 500 MG TAB 1000 MG PO (09:37)
--- NOTE | 2024-11-23 10:36 | PTTR_ITS ---
PT Notes Visit Reasons: Septic prepatellar bursitis/cellulitis left knee Physical Therapy Inpatient Treatment Note Date: 11/23/2024 Precautions: Full code. Fall. Standard. WBAT through L LE with AD. Subjective: Pain level much more decreased now with just use of crutch on the R side. Has been walking with sister in the hallway yesterday afternoon and this morning. Objective: General Observation: Ecchymosis, erythema, and swelling significantly decreased compared to yesterday Mental Status: Alert and oriented as to person, place, time, and purpose. Able to pay attention, focus, and respond appropriately. Pain: 0/10 at rest; 1/10 with weight bearing Vital Signs: Closely monitored by nursing staff Bed Mobility/Transfers: Supine to sit independent Sit to supine independent Sit to stand independent Stand to sit independent Bed to toilet seat with independent Toilet seat to bed with independent Gait: Facilitated safe and correct performance of 3-point gait pattern after properly fitting bilateral axillary crutches to patient. Pain level increased to only 3/10 with sensation of mild instability in the L knee but was made in check by the use of crutches. Stairs: Guided patient with safe navigation of 6 x 4-inch steps and 4 x 2-inch steps while using single axillary crutch, step-to gait pattern with minimal verbal cueing for limb sequence, AD management, and safe turning. Balance: Static Sitting: Normal Dynamic Sitting: Normal Static Standing: Good Dynamic Standing: Fair THERA EX: Reviewed performance of quadriceps sets 5 sh x 10 reps every hour. Additional exercises given and trained for today: Access Code: [email or web address] URL: [email or web address] Date: 11/23/2024 Prepared by: Tawanna Salamanca Exercises - Supine Active Straight Leg Raise - 1 x daily - 7 x weekly - 1 sets - 10 reps - 5 hold - Supine Heel Slide - 1 x daily - 7 x weekly - 1 sets - 10 reps - 5 hold - Step Up - 1 x daily - 7 x weekly - 1 sets - 10 reps - 5 hold - Squat with Chair Touch - 1 x daily - 7 x weekly - 1 sets - 10 reps - 5 hold - Side Stepping with Resistance at Thighs - 1 x daily - 7 x weekly - 1 sets - 10 reps - 5 hold Access Code: [email or web address] URL: [email or web address] Date: 11/23/2024 Prepared by: Tawanna Salamanca Exercises - Seated Inferior Patellar [place] - 1 x daily - 7 x weekly - 1 sets - 10 reps - 5 hold - Seated Medial Patellar [place] - 1 x daily - 7 x weekly - 1 sets - 10 reps - 5 hold - Seated Medial Patellar [place] - 1 x daily - 7 x weekly - 1 sets - 10 reps - 5 hold - Seated Superior Patellar [place] - 1 x daily - 7 x weekly - 1 sets - 10 reps - 5 hold Assessment: Today tolerated gentle patellar mobilization in all directions to be done prior to exercise performance and walking to prep the joint for activity and minimize stiffness.Patient with improved weight bearing tolerance, pain control, ambulation distance, and stability with use of bilateral axillary crutches for all OOB activities. DISCHARGE RECOMMENDATIONS: OP PT for L knee strengthening to return to pre-morbid mobility level TREATMENT CODE/TIME: 94774 x 33 minutes for 2 units (10:59-11:32).
[2024-11-23 11:14] LABS: Lyme Ab w Rflx to Lyme Confirm Negative (Negative)
--- NOTE | 2024-11-23 11:43 | DSE_ITS ---
Date of service: 11/23/24 Time of Service: 11:43 DS: Diagnosis Discharge Diagnosis (1) Septic prepatellar bursitis of left knee: Status: Acute (2) On deep vein thrombosis (DVT) prophylaxis: Status: Acute (3) Discharge planning issues: Status: Acute Discharge Plan Disposition Patient Disposition: Home Condition: Improving Discharge Details Reason For Visit: Septic prepatellar bursitis/cellulitis left knee Admit Date/Time: 11/22/24 00:09 Admit Provider: Emory Nettles Attending Provider: Emory Nettles Primary Care Provider: Unknown,Unknown Hospital Course Hospital Course: Mrs Huitron is a 54-year-old healthy female patient without significant past medical history who presented to the ED on 11/21/24 for evaluation of left knee pain, swelling and erythema, fevers, chills. left knee trauma sustained on 10/03/24 s/p fall with abrasion and bruising and mobility limitation resolving initially w/o medical attention. The patient had resume exercise regimen but completed an eighteen miles in [place] the day prior to presentation. Work-up in the ED was positive for leukocytosis, CRP 7.32, severe prepatellar soft tissue swelling considering cellulitis versus pre-patellar bursitis as XR findings. IV vancomycin and ceftriaxone initiated in the ED pending blood culture results. The patient was admitted to the medical surgical floor to the hospitalist service for septic prepatellar bursitis of left knee, cellulitis. Orthopedic consult completed w/o recommendation for OR and ongoing antibiotics.Left pre-patellar bursa aspiration completed. Blood cultures were negative, the patient remained afebrile and hemodynamically stable and will be discharged home on oral antibiotics to complete a 10-day course of treatment. Follow-up with outpatient orthopedics in 2 weeks and PCP within 7 days of dis charge please. Discussed with Dr. Mendoza Campo Meds and New Rx's Prescriptions: New sulfamethoxazole-trimethoprim [Bactrim DS] 800-160 mg tablet 1 tab PO Q12H Qty: 17 0RF cefpodoxime 200 mg tablet 200 mg PO BID Qty: 16 0RF Rx Instructions: must administer with a meal/food BiomePRO 50 billion cell capsule,delayed release(DR/EC) 1 cap PO DAILY Qty: 10 0RF Rx Instructions: Take 3 hours apart from antibiotics diclofenac sodium [Solaraze] 3 % gel 1 applic topical BID Qty: 100 0RF naproxen sodium 550 mg tablet 550 mg PO Q12H PRNQty: 10 0RF acetaminophen 500 mg capsule 1,000 mg PO Q6H PRNQty: 30 0RF Discharge Instructions Stand Alone Forms: Nursing Discharge Form Referrals: Luís Park MD [ [facility] STAFF PHYSICIAN, Orthopaedic Surgical] Referral Note: Follow-up in 2 weeks please Unknown,Unknown [Primary Care Provider, Unknown] Referral Note: Follow-up with PCP within 7 days of discharge please Activity:: Activity as Tolerated Equipment/Supplies:: Crutches Diet:: As Tolerated Discharge Orders Discharge Orders: Discharge Order (Routine); Ordered 11/23/24 Ordered By: Milena Michelle DS: Summary Time Spent with Patient providing and/or coordinating discharge services: Greater than 30 minutes Status at Discharge Functional status at discharge: uses cane/walker Overall status at discharge: patient is progressing back to baseline Mental Status: mental status grossly normal Speech and Movement: speech and movement normal Mood: congruent mood Affect: normal affect Quality:SDOH Health Related Social Needs: Health related social needs risk of homeless Health related social needs details pt. doesn't house Health related social needs details: pt. doesn't house Exam Narrative Exam Narrative: 54 yo female looking younger than stated age, alert and oriented X4, neurologically intact, clear lungs, S1 S2 regular rhythm, abdomen is non- distended soft and non-tender, improving Left knee with erythema receeding from drawn margins , no drainage or open lesion Psych Mental Status: mental status grossly normal Speech and Movement: speech and movement normal Mood: congruent mood Affect: normal affect DS: Data Vitals/I&O Vitals and I&O: Vital Signs Temperature 36.6 C 11/23/24 08:14 Temperature Source Temporal Artery Scan 11/23/24 08:14 Pulse 68 11/23/24 08:14 Pulse Rhythm Regular 11/22/24 01:19 Respiratory Rate 18 11/23/24 08:14 Respiratory Effort Normal 11/22/24 01:19 Respiratory Depth Normal 11/22/24 01:19 Respiratory Pattern Normal 11/22/24 01:19 Blood Pressure 101/61 11/23/24 08:14 Blood Pressure Mean 74 11/23/24 08:14 Blood Pressure Position Sitting 11/21/24 21:10 Pulse Oximetry 98 11/23/24 08:14 Oxygen Delivery Method Room Air 11/23/24 08:14 Oxygen Flow Rate 0 11/23/24 08:14 Pain Level 2 11/23/24 09:37 Comment 101.4 at 1800 took Advil aprrox 1900 11/21/24 21:10 Intake & Output 11/22/24 11/22/24 11/23/24 11:59 23:59 11:59 Intake Total 350 / 500 150 / 500 50 / 50 Output Total 600 / 2150 1550 / 2150 700 / 700 Balance -250 / -1650 -1400 / -1650 -650 / -650 Weight 63.503 kg 65.3 kg Intake: IV 350 / 500 150 / 500 50 / 50 Output: Urine 600 / 2150 1550 / 2150 700 / 700 Other: Urine Color Yellow Yellow Yellow Urine Appearance Clear Clear Clear Urine Odor None Normal Comment Pt voids ind. in toilet Data Completed and Pending Labs on day of discharge: Labs from last 24 hours 11/23/24 11/22/24 11/21/24 07:10 20:20 21:45 WBC 10.26 RBC 4.19 Hgb 12.3 Hct 37.1 MCV 89 MCH 29.4 MCHC 33.2 RDW 12.6 Plt Count 242 MPV 9.9 Sodium 139 Potassium 3.9 Chloride 104 Carbon Dioxide 24.0 Anion Gap 11.0 BUN 7 Creatinine 0.7 Est GFR (CKD-EPI 2020) 101.44 Glucose 109 H Calcium 9.4 Total Bilirubin 1.0 AST 19 ALT 27 Alkaline Phosphatase 63 C-Reactive Protein 7.11 H Total Protein 7.5 Albumin 3.7 Random Vancomycin 6.2 Lyme Disease Antibody Negative Preliminary micro results at discharge 11/21/24 22:55 Blood Blood Culture - Preliminary NO GROWTH 24 HOURS 11/21/24 21:52 Blood Blood Culture - Preliminary NO GROWTH 24 HOURS PFSH All Active Problems (Updated 11/22/24 @ 14:56 by Milena Michelle APRN) On deep vein thrombosis (DVT) prophylaxis (Acute) Discharge planning issues (Acute) Septic prepatellar bursitis of left knee (Acute) Cellulitis (Acute) Colon polyp (Acute) Surgical History H/O colonoscopy (~05/2019) 05/2019 - low grade serrated adenoma. Repeat in 5 years. Social History Smoking/Tobacco Use Status: Never Smoking risk assessment performed?: Yes Alcohol Intake: current Alcohol Intake frequency: a few times a week Alcohol type: wine Drug use: Never Substance use type: does not use Housing: house Do you feel safe at home: Yes Do you feel safe in your relationship?: Yes Time Spent with Patient Time Spent with Patient: >85 minutes Time was spent: preparing to see the patient(eg.review tests), obtaining and/or reviewing separately otained hiistory, ordering medications,tests, procedures, referring, communicating with other health rn care manager, indepentently interpreting results, counseling the patient and care coordination
[2024-11-23] MEDS: VANCOMYCIN/WATER (PEG) 1.25 GM/250 ML BAG IVPB (11:59)
--- NOTE | 2024-11-23 15:50 | PDOC.CMDIS ---
Date of service: 11/23/24 Time of Service: 15:51 LACE Index Scoring Tool Questions: Length of Stay (in days): 1 Was the patient admitted via the E.D.?: Yes E.D. Visits: 1 Answers: Total Score: 5 Risk of Readmission: Low Risk Care Management Discharge Plan Reason for Hospitalization: Septic prepatellar bursitis of left knee Discharge Plan: Brianda was discharged home this afternoon with no new services. She had her knee aspirated by Dr. Head prior to discharge and will f/u with him within 2 weeks - she will be called by the surgical office on Wednesday. Brianda will also f/u with her PCP office, who was notified by CM of her discharge. She transported home in a private vehicle with her sister. Patient/Family Education Needs: Review of discharge instructions, activity, limitations and discuss Ask me 3. SDOH Health Related Social Needs: Health related social needs risk of homeless Health related social needs details pt. doesn't house Health related social needs details: pt. doesn't house
[2024-11-25 00:43] LABS: B. miyamotoi PCR Negative (Negative); Babesia divergens/MO-1 Negative (Negative); Ehrlichia muris eauclairensis Negative (Negative)
== END 2024-11-23 15:32 | disposition home or self-care (01) | DRG 558 ==
LOC: ER 11-22 00:31 → MS 11-22 01:17
PROVIDERS: Student in an Organized Health Care Education/Training Program; Admitting Provider Family Medicine; Emergency Provider Registered Nurse Emergency; Responsible Provider Nurse Practitioner Acute Care; Visit Provider Family Medicine
DX: M71.162 Other infective bursitis, left knee (principal); L03.116 Cellulitis of left lower limb; D72.829 Elevated white blood cell count, unspecified
CPT/HCPCS: 20610; 00123; 36415; 73562; 80053; 84145; 85027; 85652; 87040; 87077; 87637; 87798; 96365; 96367; 97110; 97162; 97530; 99285; 80202; 83735; 85025; 86140; 86618; 87070; 87186; 87205; 99222; 99233; 99239; J0696; J1644; J2004; J3373

== ENCOUNTER 2024-11-24 12:08 | Emergency (ER) | payer BC, SELFPAY ==
[2024-11-24 12:09] VITALS: BP 127/84; PULSE 69; RESP 16; TEMP 36.9; O2SAT 98
--- NOTE | 2024-11-24 12:38 | W.ED.GENAD ---
Discharge Plan Disposition Patient Disposition: Home Condition: Good Discharge Details Clinical Impression: Encounter for wound re-check, Suprapatellar bursitis of left knee Primary Care Provider: Sandra Alvarez ED Provider: Eusebio Abebe Home Meds and New Rx's Prescriptions: No Action sulfamethoxazole-trimethoprim [Bactrim DS] 800-160 mg tablet 1 tab PO Q12H Qty: 17 0RF cefpodoxime 200 mg tablet 200 mg PO BID Qty: 16 0RF Rx Instructions: must administer with a meal/food BiomePRO 50 billion cell capsule,delayed release(DR/EC) 1 cap PO DAILY Qty: 10 0RF Rx Instructions: Take 3 hours apart from antibiotics diclofenac sodium [Solaraze] 3 % gel 1 applic topical BID Qty: 100 0RF naproxen sodium 550 mg tablet 550 mg PO Q12H PRNQty: 10 0RF acetaminophen 500 mg capsule 1,000 mg PO Q6H PRNQty: 30 0RF Discharge Instructions Additional Instructions: At this time your laboratory inflammatory markers have all demonstrated notable improvement. There is no evidence to suggest worsening objective hematologic or severe bursal infection. Please continue to take the antibiotics as prescribed. Please contact Dr. Park if you have any additional questions or concerns. If you notice any worsening of your symptoms, or any new symptoms such as vomiting, diarrhea, fever, chills, shortness of breath, chest pain, numbness, weakness, or fainting , please return immediately to the emergency department for reevaluation. Please follow up with your primary care provider as soon as possible for reassessment and reevaluation. As always, it was a pleasure participating in your medical care today. Referrals: Luís Park MD [ [facility] STAFF PHYSICIAN, Orthopaedic Surgical] Sandra Alvarez PA [Primary Care Provider, Medicine] HPI General Date/Time Provider Initiated Documentation: 11/24/24 12:19. HPI Narrative: This is a pleasant 54-year-old female with past medical history of recent prepatellar septic bursitis, with admission on 11/21/2024, orthopedic evaluation on 11/22 with subsequent aspiration which has grown Staph aureus, and then subsequent discharge appropriately on 11/23 on Bactrim and cefpodoxime. Patient was discharged last night. She noted this morning that the redness began to spread up her knee, and the swelling returned. She admits to feeling slightly shaky, but denies any new fever or extreme fatigue. When she was admitted she did have fever and myalgias. Out of concern for the spreading redness, and the worsening swelling she did return for reassessment. She denies any other complaints. No other modifying factors. She does have mild pain with movement of the knee, and mild tenderness with palpation. Related Data Home Medications ?Medication ?Instructions ?Recorded ?Confirmed L. acidophilus,casei,rhamnosus 50 1 cap PO DAILY #10 caps 11/23/24 11/24/24 billion cell capsule,delayed release (BiomePRO) acetaminophen 500 mg capsule 1,000 mg (2 x 500 mg) PO Q6H PRN 11/23/24 11/24/24 #30 caps cefpodoxime 200 mg tablet 200 mg PO BID #16 tabs 11/23/24 11/24/24 diclofenac sodium 3 % topical gel 1 applic topical BID #100 grams 11/23/24 11/24/24 (Solaraze) naproxen sodium 550 mg tablet 550 mg PO Q12H PRN #10 tabs 11/23/24 11/24/24 sulfamethoxazole 800 1 tab PO Q12H #17 tabs 11/23/24 11/24/24 mg-trimethoprim 160 mg tablet (Bactrim DS) Previous Rx's ?Medication ?Instructions ?Recorded L. acidophilus,casei,rhamnosus 50 1 cap PO DAILY #10 caps 11/23/24 billion cell capsule,delayed release (BiomePRO) acetaminophen 500 mg capsule 1,000 mg (2 x 500 mg) PO Q6H PRN 11/23/24 #30 caps cefpodoxime 200 mg tablet 200 mg PO BID #16 tabs 11/23/24 diclofenac sodium 3 % topical gel 1 applic topical BID #100 grams 11/23/24 (Solaraze) naproxen sodium 550 mg tablet 550 mg PO Q12H PRN #10 tabs 11/23/24 sulfamethoxazole 800 1 tab PO Q12H #17 tabs 11/23/24 mg-trimethoprim 160 mg tablet (Bactrim DS) Allergies Allergy/AdvReac Type Severity Reaction Status Date / Time No Known Allergies Allergy Verified 11/24/24 12:16 General Stated Complaint: Orthopedic TEQUILA: 3 Exam Narrative Exam Narrative: 1.Const: Well-nourished, Well-developed, appearing stated age 2.Eyes: PERRL, no conjunctival injection, and symmetrical lids. 3.ENT: Atraumatic external nose and ears. Moist MM. Neck: Symmetric, trachea midline, No thyromegaly. 4.CVS: +S1/S2, Peripheral pulses 2+ and equal in all extremities. Brisk capillary refill in all extremities. 5.RESP: Unlabored respiratory effort. Clear to auscultation bilaterally. No wheezes rales or rhonchi 6.GI: Soft, Nontender/Nondistended, No hepatosplenomegaly. No guarding or rebound. 7.MSK: Left knee demonstrates swelling in the prepatellar area, the initial line demarcating the redness when she arrived at the time of admission demonstrates improvement of the surrounding erythema, however the line that was done at the time of discharge shows evidence of spreading of redness particularly more proximally up the knee and medial aspect of the thigh. Mild tenderness with palpation. Mild pain with movement. 8.Skin: Warm, Dry. No rashes or lesions. 9.Neuro: seed service advisor II-XII grossly intact. Sensation grossly intact, no focal neurologic deficits. 10.Psych: (AAO) x3. Appropriate mood and affect Course Vital Signs Vital signs: Vital Signs Temperature 36.9 C 11/24/24 12:09 Pulse 69 11/24/24 12:09 Respiratory Rate 16 11/24/24 12:09 Blood Pressure 127/84 11/24/24 12:09 Pulse Oximetry 98 11/24/24 12:09 Temperature 36.9 C 11/24/24 12:09 Pulse 69 11/24/24 12:09 Respiratory Rate 16 11/24/24 12:09 Blood Pressure 127/84 11/24/24 12:09 Pulse Oximetry 98 11/24/24 12:09 Oxygen Delivery Method Room Air 11/24/24 12:09 Oxygen Flow Rate 0 11/24/24 12:09 Pain Level 4 11/24/24 12:09 Medical Decision Making This is a pleasant 54-year-old female with past medical history of recent prepatellar septic bursitis, with admission on 11/21/2024, orthopedic evaluation on 11/22 with subsequent aspiration which has grown Staph aureus, and then subsequent discharge appropriately on 8/21 on Bactrim and cefpodoxime. Patient was discharged last night. She noted this morning that the redness began to spread up her knee, and the swelling returned. She admits to feeling slightly shaky, but denies any new fever or extreme fatigue. When she was admitted she did have fever and myalgias. Out of concern for the spreading redness, and the worsening swelling she did return for reassessment. She denies any other complaints. No other modifying factors. She does have mild pain with movement of the knee, and mild tenderness with palpation. Left knee demonstrates swelling in the prepatellar area, the initial line demarcating the redness when she arrived at the time of admission demonstrates improvement of the surrounding erythema, however the line that was done at the time of discharge shows evidence of spreading of redness particularly more proximally up the knee and medial aspect of the thigh. Mild tenderness with palpation. Mild pain with movement. Concern for a spreading superficial cellulitis, without systemic symptoms I am uncertain if there is a component of worsening or stable infectious bursitis. Patient has contacted her family member/sister who is a pediatric orthopedic surgeon at [facility]. We will reach out to Dr. Park, recheck inflammatory markers, monitor closely and reassess. Sensitivities for the Staph aureus aspirate cultures have not returned yet. 1:58 AM Laboratory workup has returned, no white count, current WBC count of 7.53, no bandemia or left shift. ESR is normal, CRP is down by 50% down to 3.79. Procalcitonin less than 0.1. From an objective laboratory standpoint, notable improvement for all of her laboratory workup. Patient's sister has come by, as well as the orthopedic surgeon Dr. Park. They have evaluated the patient, and at this time with reassuring labs, the lack of fever, and the appropriateness of the antibiotics with the cultures, they do feel that surgical intervention is not indicated at this time, and recommendations will be for continued antibiotic treatment. If things change or worsen, family does have the option of bursal surgery, and she understands this. She has been given Dr. Park's personal phone number, and will contact him if there is any problems. Patient will be discharged home. Vital signs remained stable with no evidence of septicemia or significant systemic infection. I have extensively reviewed the treatment plan and discharge instructions with the patient and their family. I have addressed all patient concerns at this time. The patient and family was made aware of what symptoms to monitor for that would warrant a return to the emergency department. Discussed the plan with the patient and family, they demonstrate verbal understanding and agreement with our assessment and plan at this time. The documentation in this chart was dictated using [employer] dictation software. Please excuse any dictation errors. Quality:SDOH Health Related Social Needs: Health related social needs risk of homeless Health related social needs details pt. doesn't house PFSH All Active Problems (Updated 11/24/24 @ 14:01 by Eusebio Abebe DO) Suprapatellar bursitis of left knee (Acute) Encounter for wound re-check (Acute) Septic prepatellar bursitis of left knee (Acute) Cellulitis (Acute) Colon polyp (Acute) Surgical History H/O colonoscopy (~05/2019) 05/2019 - low grade serrated adenoma. Repeat in 5 years. Social History Smoking/Tobacco Use Status: Never Smoking risk assessment performed?: Yes Alcohol Intake: current Alcohol Intake frequency: a few times a week Alcohol type: wine Drug use: Never Substance use type: does not use Housing: house Do you feel safe at home: Yes Do you feel safe in your relationship?: Yes
[2024-11-24 13:03] LABS: Abs Immature Grans 0.02 10^3/uL (0.0-0.06); HCT 35.2 % (36.0-46.0); HGB 11.9 g/dL (11.2-15.7); Immature Grans % 0.3 %; MCH 29.5 pg (27.0-33.0); MCHC 33.8 % (32.0-36.0); MCV 87 fL (80-95); MPV 10.0 fL (8.0-11.0); Platelet Count 287 10^3/uL (130-400); RBC 4.03 10^6/uL (3.93-5.22); RDW 12.4 % (11.7-14.6); RDW-SD 40.0 fL; WBC 7.53 10^3/uL (4.4-10.8)
[2024-11-24 13:11] LABS: ALT 25 U/L (14-59); AST 16 U/L (15-37); Albumin 3.9 g/dL (3.4-5.0); Alkaline Phosphatase 63 U/L (46-116); Anion Gap 11.2 mmol/L (3-11); BUN 9 mg/dL (7-18); Bilirubin, Total 0.6 mg/dL (0.2-1.0); C-Reactive Protein 3.79 mg/dL (<or=0.5); CO2 25.8 mmol/L (21.0-32.0); Calcium 9.3 mg/dL (8.5-10.1); Chloride 104 mmol/L (98-107); Estimated GFR 101.44 (mL/min/1.73m2); Glucose 100 mg/dL (74-106); Potassium 3.5 mmol/L (3.5-5.1); Sodium 141 mmol/L (136-145); Total Protein 7.6 g/dL (6.4-8.2)
[2024-11-24 13:23] LABS: ESR 27 mm/hr (0-30)
[2024-11-24 13:41] LABS: Procalcitonin < 0.10 ng/mL
--- NOTE | 2024-11-24 13:50 | W.ORTHOCONSU ---
Date of service: 11/24/24 Time of Service: 13:50 Assessment and Plan Assessment and plan (1) Septic prepatellar bursitis of left knee: Status: Acute Assessment and plan: 54-year-old female with probably improving left knee septic prepatellar bursitis. Patient returned to the ER today due to concerns about increased redness and fluid about the anterior knee. She has been taking the antibiotics since discharge yesterday afternoon without any major side effects. She is also using naproxen, but denies any fevers or chills. Her knee feels about the same, but she is very anxious about this situation. She was told to return to the emergency room due to concerns of worsening infection possibly requiring surgery. Left knee looks similar to yesterday overall with some reaccumulation of the prepatellar bursal fluid since aspiration, some improvement in the redness distally and laterally, no signs of infection at the aspiration site, and some increasing redness and induration superomedial with some irregular proximal redness about the distal medial thigh. She is comfortable at rest, demonstrates similar motion about full extension to past 90 degrees flexion limited by the anterior fluid collection causing tightness. Afebrile, normotensive, normal heart rate. WBC is improved to 7, CRP is also quite improved about half what it was yesterday, and ESR remains normal. Preliminary cultures growing staph aureus. Sensitivities to follow. Thorough discussion about treatment options at this time between the patient, her , and her sister orthopedic surgeon Dr. Karlene Mcclain on speaker phone. Could certainly consider prepatellar bursa irrigation and debridement, but objectively the infection is improving on the current antibiotic regimen. Both the antibiotics cover staph and Bactrim covers community MRSA. The change in redness and induration seen here can be seen with resolving infection as most of it remains improved. I reviewed the option of surgery this afternoon versus additional time on antibiotics to see if we can avoid any surgery altogether. I also reviewed the potential need for future surgery for incomplete clearance of this infection or prepatellar bursitis even after resolving the infection. We reviewed the surgery in detail, how she should do well and it should not be any major procedure, but she would like to avoid this procedure if possible. Shared decision to continue observing on antibiotics. Her and her are reliable, and I have given the patient my personal cell phone number. She will keep me updated through the weekend. If the knee worsens, we will proceed with surgery. If infection or prepatellar fluid problems persist next week about 1 week into treatment, we should probably decide to move ahead with surgery in order to probably expedite recovery. Overall, very reassuring vital signs and lab work to support continued medical management. All questions were answered They agree and understand treatment plan They Will call if any changes or concerns PFSH All Active Problems (Updated 11/24/24 @ 14:01 by Eusebio Abebe, DO) Suprapatellar bursitis of left knee (Acute) Encounter for wound re-check (Acute) Septic prepatellar bursitis of left knee (Acute) Cellulitis (Acute) Colon polyp (Acute) Surgical History H/O colonoscopy (~05/2019) 05/2019 - low grade serrated adenoma. Repeat in 5 years. Social History Smoking/Tobacco Use Status: Never Smoking risk assessment performed?: Yes Alcohol Intake: current Alcohol Intake frequency: a few times a week Alcohol type: wine Drug use: Never Substance use type: does not use Housing: house Do you feel safe at home: Yes Do you feel safe in your relationship?: Yes Results Last Vital Signs Temp 98.4 F 11/24/24 12:09 Pulse 69 11/24/24 12:09 Resp 16 11/24/24 12:09 BP 127/84 11/24/24 12:09 Pulse Ox 98 11/24/24 12:09 Labs 11/24/24 12:43 11/24/24 12:43 Labs: Laboratory Results - last 24 hr 11/24/24 11/24/24 12:43 12:43 WBC 7.53 RBC 4.03 Hgb 11.9 Hct 35.2 L MCV 87 MCH 29.5 MCHC 33.8 RDW 12.4 Plt Count 287 MPV 10.0 Immature Gran % 0.3 Neutrophils % 72.7 Lymphocytes % 14.6 Monocytes % 8.8 Eosinophils % 3.1 Basophils % 0.5 Nucleated RBC % 0.0 Absolute Neutrophils 5.48 Absolute Lymphocytes 1.10 L Absolute Monocytes 0.66 Absolute Eosinophils 0.23 Absolute Basophils 0.04 ESR 27 Sodium 141 Potassium 3.5 Chloride 104 Carbon Dioxide 25.8 Anion Gap 11.2 H BUN 9 Creatinine 0.7 Est GFR (CKD-EPI 2020) 101.44 Glucose 100 Calcium 9.3 Total Bilirubin 0.6 AST 16 ALT 25 Alkaline Phosphatase 63 C-Reactive Protein Cancelled 3.79 H Total Protein 7.6 Albumin 3.9 Procalcitonin < 0.10
== END 2024-11-24 14:13 | disposition home or self-care (01) ==
PROVIDERS: Emergency Provider Student in an Organized Health Care Education/Training Program
DX: M71.162 Other infective bursitis, left knee (principal); Z59.811 Housing instability, housed, with risk of homelessness
CPT/HCPCS: 99283 ×2; 80053; 84145; 85652; 85025; 86140

== ENCOUNTER 2024-12-15 12:59 | Day surgery (SDC) | payer BC, SELFPAY ==
--- NOTE | 2024-12-15 06:53 | W.PM.OP ---
Operative Note Operative Note PRE-OP DIAGNOSIS: Sequelae of the left knee septic prepatellar bursitis POST-OP DIAGNOSIS: same PROCEDURE: Left knee prepatellar bursa irrigation debridement, CPT #07395 SURGEON: Luís Park SLOT SERVICE SPECIALIST: Padmaja Lorenzo ANESTHESIA TYPE: Local By Surgeon Refer to Anesthesia Record ESTIMATED BLOOD LOSS: 5 PATHOLOGY: none sent TOURNIQUET TIME: 0 COMPLICATIONS: None Patient was transported to: PACU Patient's condition: stable Indications: Please see complete medical record for details. Findings: Moderate amount of chronic-appearing fibrinous material and bursitis in the suprapatellar prepatellar space. No purulence or evidence of active infection. Procedure Description: In the operating room, spinal anesthesia was induced. The patient was positioned supine on the operating room table. All bony prominences were well-padded. Preoperative antibiotics were administered. The left knee was prepped and draped in the usual sterile fashion. The correct patient, procedure, and side of the procedure were all verified prior to incision. 30 cc of 0.25% bupivacaine containing epinephrine was infiltrated about a small longitudinal suprapatellar incision as well as in and around the prepatellar bursa. Full-thickness approach was then made a few centimeters into the bursa with suction and pressure evacuating moderate amount of fibrous material and the Yankauer used to remove some bursitis. Alternating between the Yankauer, Greer, curette, and bulb irrigation the suprapatellar prepatellar bursa widely in all directions was thoroughly irrigated and debrided of all sequelae of the septic bursitis including fibrinous material and abnormal bursal tissue. Almost 3 L of gravity cystoscopy irrigation was then used to copiously irrigate the space followed by confirming it was completely cleaned and cleared probing around the margins with a Greer. The remainder of normal saline irrigation was used followed by suction to completely evacuate the space. Hemostasis was excellent. 2-0 Monocryl buried interrupted was used to close the subcutaneous tissue followed by 3-0 Monocryl subcuticular running to close the skin. Steri-Strips were applied about the incision. Xeroform and 4 x 4 gauze applied over the top with gentle Mark bandage compression. The patient tolerated spinal anesthesia without complication and was transferred to the recovery room in a stable condition. Date of Procedure: 12/15/24
--- NOTE | 2024-12-15 07:07 | PDOC.DSDIS_ITS ---
Date of service: 12/15/24 Discharge Plan Disposition Patient Disposition: Home Condition: Stable Discharge Details Attending Provider: Luís Park Primary Care Provider: Sandra Alvarez Home Meds and New Rx's Prescriptions: New naproxen 250 mg tablet 250 - 500 mg PO BID PRN (Reason: moderate pain and swelling) Qty: 30 0RF Rx Instructions: take with a meal oxycodone 5 mg tablet 5 - 10 mg PO .q4-6h MDD 30 mg PRN (Reason: severe pain) Qty: 9 0RF Continued cefadroxil 1 gram tablet 1,000 mg PO BID 10 Days Qty: 20 0RF BiomePRO 50 billion cell capsule,delayed release(DR/EC) 1 cap PO DAILY Qty: 10 0RF Rx Instructions: Take 3 hours apart from antibiotics Discharge Instructions Additional Instructions: Surgery: Left knee prepatellar bursa irrigation, debridement, and partial excision 12/15/24 Activity: Weightbearing as tolerated. No brace or crutches needed as soon as comfortable and stable on knee. Restore full knee extension as soon as possib le. Perform early quad sets/quadriceps isometrics. Gradually increase flexion to full. Recommend elevation to minimize swelling discomfort. Encourage ankle pumps and wiggle toes to improve circulation. Physical therapy prescription can be provided at follow-up if needed. Okay to walk around this weekend, okay to easy bike next week with compression on the knee, and gradually advance back into more walking and hiking (with poles) over the next 2-3 weeks. Nothing high-impact or vigorous for about 6 weeks. Prescriptions: Continue cefadroxil 1 g twice daily to complete this prescription. Use with a daily probiotic. Naproxen 250 mg take 1-2 every 12 hours with a meal as needed for moderate pain Oxycodone 5 mg take 1-2 every 4-6 hours as needed for severe pain You may use [id number] Tylenol (acetaminophen) as needed for mild pain. These pain medications may be taken all at once or in different combinations as needed. Also, recommend Colace (docusate) as a stool softener as surgery and pain medicine cause constipation. You may try [id number] diphenhydramine (Benadryl) 25-50 mg nightly as a sleep aid Dressings: Leave dressing in place for 2-3 days. You may loosen/adjust Mark bandage, but recommend compression to prevent reaccumulation most of the time over the next 1-2 weeks. After 2-3 days, remove gauze and leave open to air or cover incision with wide Band-Aid. Leave the sticky Steri-Strips in place until they fall off or remove them after you shower. May shower after 5 days. Follow-up: 10-[address] Park You may take off the leg compression stockings this evening at home. You may also leave them on a few days longer if you have a history of leg swelling or edema. Let us know right away if you develop any redness, drainage, fevers, chest pain, or trouble breathing. Do not drink alcohol or drive for at least 24 hours after anesthesia. Please call the office during business hours with any questions or concerns. Stand Alone Forms: Anesthesia Discharge Inst., Keny Cooper (U) Referrals: Luís Park MD [ [facility] STAFF PHYSICIAN, Orthopaedic Surgical] - 12/27/24 8:45 am Discharge Orders Discharge Orders: Discharge Order (Routine); Ordered 12/15/24 Ordered By: Padmaja Lorenzo DS: Diagnosis Discharge Diagnosis (1) Septic prepatellar bursitis of left knee: Status: Acute
[2024-12-15 13:28] VITALS: BP 101/62; PULSE 61; RESP 14; TEMP 36.5; O2SAT 100
[2024-12-15] MEDS: Lactated Ringers 1,000 ML 30 ML IV (13:56)
--- NOTE | 2024-12-15 14:04 | W.ANESPRE ---
General Info Date of Service Date Performed: 12/15/24 Height: 5 ft 4 in Weight: 63.1 kg Body Mass Index (BMI): 23.8 Surgical Procedure: Operation Date: 12/15/24 14:25 Proposed Procedure Side Surgeon p Knee Excision Bursa Knee, Irrigation and Debridement Left Luís Park MD Meds Allergies and Home Medications Allergies Allergy/AdvReac Type Severity Reaction Status Date / Time No Known Allergies Allergy Verified 12/15/24 13:27 Home Medication ?Medication ?Instructions ?Recorded L. acidophilus,casei,rhamnosus 50 1 cap PO DAILY #10 caps 11/23/24 billion cell capsule,delayed release (BiomePRO) cefadroxil 1 gram tablet 1,000 mg PO BID 10 days #20 tabs 12/13/24 Current Visit Medications: Current Medications Generic Name Dose Route Start Last Admin Trade Name Freq PRN Reason Stop Dose Admin Ringer's Solution 1,000 mls @ 30 mls/hr 12/15/24 06:00 12/15/24 13:56 IV 12/15/24 23:59 30 mls/hr INFUSION NENA Administration Cefazolin Sodium/Dextrose 2 gm in 50 mls @ 100 mls/hr 12/15/24 06:00 Ancef Duplex IVPB 12/15/24 23:59 PREOP NENA Tranexamic Acid/Sodium Chloride 1,000 mg in 100 mls @ 600 mls/hr 12/15/24 06:00 IVPB 12/15/24 23:59 PREOP NENA IV Miscellaneous Supplies 1 each 12/15/24 06:00 Iv Access IV 12/15/24 23:59 DIRECTED NENA Oxycodone HCl 0 mg 12/15/24 07:07 Oxycodone 5 Mg Tab PO 01/14/25 07:06 Q3H PRN PRN Pain Sodium Chloride 0 ml 12/15/24 06:00 Normal Saline Flush 10 Ml Syr IV 12/15/24 23:59 PRN PRN Sodium Chloride 0 ml 12/15/24 06:00 Normal Saline 10 Ml Vial IJ 12/15/24 23:59 DIRECTED PRN Sterile Water 0 ml 12/15/24 06:00 Water,Injection,Sterile 10 Ml Vial IJ 12/15/24 23:59 DIRECTED PRN PFSH Active Problems Active Problems: Problem Status Onset Code Encounter for wound re-check Acute Z51.89 Septic prepatellar bursitis of left knee Acute M71.162 Cellulitis Acute L03.90 Colon polyp Acute K63.5 Surgical History Surgical History H/O colonoscopy (~05/2019) 05/2019 - low grade serrated adenoma. Repeat in 5 years. Tobacco Smoking/Tobacco Use Status: Never Alcohol Alcohol Intake: current Alcohol intake frequency: a few times a week Alcohol type: wine Substance Use Substance use: Never Substance use type: does not use Vital Signs and Lab Results Vital Signs Most Recent Vital Signs in EMR: Most Recent Vital Signs Temp Pulse Resp BP Pulse Ox 36.5 C 61 14 101/62 100 12/15/24 13:28 12/15/24 13:28 12/15/24 13:28 12/15/24 13:28 12/15/24 13:28 Lab Results Complete Blood Count: WBC, (4.4-10.8) 7.53 10^3/uL 11/24/24, 12:43 RBC, (3.93-5.22) 4.03 10^6/uL 11/24/24, 12:43 Hgb, (11.2-15.7) 11.9 g/dL 11/24/24, 12:43 Hct, (36.0-46.0) 35.2 % L 11/24/24, 12:43 Plt Count, (130-400) 287 10^3/uL 11/24/24, 12:43 Complete Metabolic Panel: Sodium, (136-145) 141 mmol/L 11/24/24, 12:43 Potassium, (3.5-5.1) 3.5 mmol/L 11/24/24, 12:43 Chloride, (98-107) 104 mmol/L 11/24/24, 12:43 Carbon Dioxide, (21.0-32.0) 25.8 mmol/L 11/24/24, 12:43 BUN, (7-18) 9 mg/dL 11/24/24, 12:43 Creatinine, (0.55-1.02) 0.7 mg/dL 11/24/24, 12:43 Est GFR (CKD-EPI 2020), (mL/min/1.73m2) 101.44 11/24/24, 12:43 Magnesium, (1.8-2.4) 2.3 mg/dL 11/21/24, 21:45 Calcium, (8.5-10.1) 9.3 mg/dL 11/24/24, 12:43 Albumin, (3.4-5.0) 3.9 g/dL 11/24/24, 12:43 Glucose, (74-106) 100 mg/dL 11/24/24, 12:43 C-Reactive Protein, (<or=0.5) 3.79 mg/dL H 11/24/24, 12:43 Liver Function Panel: ALT, (14-59) 25 U/L 11/24/24, 12:43 AST, (15-37) 16 U/L 11/24/24, 12:43 Infectious Disease: SARS-CoV-2 (PCR), (Negative) Negative 11/22/24, 00:30 COVID-19 Source Nasopharynx 11/22/24, 00:30 Influenza Type A (PCR), (Negative) Negative 11/22/24, 00:30 Influenza Type B (PCR), (Negative) Negative 11/22/24, 00:30 RSV (PCR), (Negative) Negative 11/22/24, 00:30 Anesthesia Assessment and Plan Anesthesia History Personal History: No History of Anesthesia Complications Family History: No Family History of Anesthesia Complications Exercise Tolerance Exercise Tolerance: Metabolic Equivalents>4 Pertinent Negatives Pertinent Negatives: No Symptoms of GERD, No Major Cardiovascular Symptoms or Complaints and No Major Pulmonary Symptoms or Complaints Cardiac & Pulmonary Exam Cardiac Exam: Normal S1/S2 Heart Sounds Pulmonary Exam: Clear Bilateral Breath Sounds Implantable Cardiac Device Does patient have a Pacemaker or an ICD?: No Airway Exam Known Difficult Airway: No Mallampati Class: 1 Mouth Opening: Normal (> 3cm) Thyromental Distance: Greater than 3 cm Neck Range of Motion: Full ROM Neck Circumference: Normal Teeth Condition: Normal Dentition ASA Classification ASA Score: ASA 2 Emergency Case?: No NPO Status NPO Status: NPO Clears >2 hours, Solids >8 hours Anesthesia Plan Resuscitation Status: Full Code Anesthesia Technique: Spinal Anesthesia Airway Planned: Natural Airway Monitors Used: Standard Monitors Preoperative Comments:: SAB at patient request with GA/LMA backup
[2024-12-15 14:06] VITALS: BMI 23.8
[2024-12-15] MEDS: ceFAZolin 2 GM/50 ML BAG IVPB (14:30)
[2024-12-15] MEDS: TRANEXAMIC ACID/SOD. CHL. 1,000 MG/100 ML BAG 600 MG IVPB (14:37)
[2024-12-15] MEDS: Bupivacaine 0.25% Pres-Free W/EPI 30 ML VIAL (14:53)
[2024-12-15 15:27] VITALS: BP 104/66; PULSE 55; RESP 16; TEMP 36.1; O2SAT 100
[2024-12-15 16:00] VITALS: BP 104/61; PULSE 59; RESP 16; TEMP 36.2; O2SAT 99
--- NOTE | 2024-12-15 16:28 | W.ANESPOSTOP ---
Postoperative Evaluation Date, Time and Location Date Performed: 12/15/24 Time Performed: 15:45 Patient Location: Day Surgery Unit Vital Signs Most Recent Imported Vital Signs: Most Recent Vital Signs Temp Pulse Resp BP Pulse Ox 36.2 C L 59 L 16 104/61 99 12/15/24 16:00 12/15/24 16:00 12/15/24 16:00 12/15/24 16:00 12/15/24 16:00 Pain Score Most Recent Pain Score: Most Recent Pain Score Pain Level 0 12/15/24 16:00 Assessment Mental Status: Awake (Alert & Oriented to Patient Baseline) Airway and Respiratory Function: Patent airway with normal (patient baseline) respiratory exam Cardiovascular Function: Hemodynamically Stable Hydration Status: Adequately Hydrated Nausea & Vomiting: No Nausea or Vomiting Pain: Pt. Denies Any Pain Peripheral Nerve Block: Patient did not receive a nerve block
== END 2024-12-15 16:46 | disposition home or self-care (01) ==
LOC: SUR 12:59
PROVIDERS: Visit Provider Student in an Organized Health Care Education/Training Program
PROC: (CPT 27340; principal; 2024-12-15 14:15)
DX: M71.562 Other bursitis, not elsewhere classified, left knee (principal)
CPT/HCPCS: 27301; J0690; J2401; J2405